=== PATIENT | female | born 1970 | race American Indian/Alaskan Native ===

== ENCOUNTER 2017-08-18 21:29 | Inpatient (IN) | payer MEDICAID, OTHER ==
[2017-08-18 21:31] VITALS: BMI 30.2
--- NOTE | 2017-08-18 21:54 | ED PDOC ---
Arrival/HPI - General Chief Complaint: Altered Mental Status Time Seen by Provider: 08/18/17 21:32 Historian: EMS - History of Present Illness Narrative History of Present Illness (Text): 08/18/17 21:53 Piper Rosas is a 47 year old female, whose past medical history includes hypertension, diabetes, ESRD on hemodialysis, and osteromyelitis, who presents to the Emergency department brought in by EMS for altered mental status. As per EMS, patient's boyfriend called EMS due to patient new onset of altered mental status and confusion tonight. On arrival to ER, patient is confused and disoriented x3. Limited HPI and ROS due to patient's altered mental status. Time/Duration: Other (tonight) Symptom Onset: Gradual Symptom Course: Unchanged Activities at Onset: Light Context: Home Past Medical History - Provider Review Nursing Documentation Reviewed: Yes - Infectious Disease Hx of Infectious Diseases: None - Cardiac Hx Hypertension: Yes - Renal Hx Renal Disorder: Yes Hx Dialysis: Yes Type of Dialysis Access: HD - Endocrine/Metabolic Hx Endocrine Disorders: Yes Hx Diabetes Mellitus Type 2: Yes - Psychiatric Hx Substance Use: No - Surgical History Hx Orthopedic Surgery: Yes - Suicidal Assessment Feels Threatened In Home Enviroment: No Family/Social History - Physician Review Nursing Documentation Reviewed: Yes Family/Social History: Unknown Family HX Smoking Status: Unknown If Ever Smoked Hx Alcohol Use: No Hx Substance Use: No Allergies/Home Meds Allergies/Adverse Reactions: Allergies No Known Allergies Allergy (Unverified 08/12/13 00:40) Home Medications: Home Meds Medication Instructions Recorded Confirmed Crestor 08/12/13 08/12/13 Lisinopril 08/12/13 08/12/13 Metformin 08/12/13 08/12/13 Review of Systems - Review of Systems Systems not reviewed;Unavailable: Altered Mental Status Physical Exam Vital Signs Reviewed: Yes Vital Signs Temp Pulse Resp BP Pulse Ox 08/19/17 01:25 103.1 F H 102 H 17 198/133 H 95 08/18/17 23:11 97 H 193/109 H 08/18/17 22:57 104 H 215/115 H 08/18/17 22:56 104 F H 104 H 215/115 H 08/18/17 22:24 105 H 217/117 H 08/18/17 22:16 104 F H 08/18/17 21:57 103.0 F H 100 H 20 223/122 H 94 L 08/18/17 21:37 104 H 20 201/102 H 96 Temperature: Febrile Blood Pressure: Hypertensive Pulse: Tachycardic Respiratory Rate: Normal Pain Distress: None Mental Status: Positive for: Confused - Systems Exam Head: Present: Atraumatic, Normocephalic Pupils: Present: PERRL Extroacular Muscles: Present: EOMI Conjunctiva: Present: Normal Mouth: Present: Moist Mucous Membranes Neck: Present: Normal Range of Motion Respiratory/Chest: Present: Rhonchi. No: Respiratory Distress, Accessory Muscle Use Cardiovascular: Present: Normal S1, S2, Tachycardic. No: Murmurs Abdomen: Present: Normal Bowel Sounds. No: Tenderness, Distention, Peritoneal Signs Upper Extremity: Present: Normal Inspection, Normal ROM, NORMAL PULSES, Neurovascularly Intact, Capillary Refill < 2s. No: Cyanosis, Edema, Tenderness , Swelling, Erythema, Temperature Abnormalties, Deformity Lower Extremity: Present: Normal Inspection, NORMAL PULSES, Normal ROM, Neurovascularly Intact, Capillary Refill < 2 s. No: Edema, Cyanosis, Tenderness , Swelling, Erythema, Deformity, Temperature Abnormalties Neurological: Present: GCS=15, CN II-XII Intact, Motor Func Grossly Intact, Normal Sensory Function, Normal Cerebellar Funct Skin: Present: Warm, Dry, Normal Color. No: Rashes Psychiatric: Present: Other (Confused, disoriented x3). No: Oriented x 3 Medical Decision Making ED Course and Treatment: 08/18/17 21:53 Impression: 47 year old female brought in by EMS for altered mental status tonight. Plan: -- CT Head w/o contrast -- EKG -- Chest X-ray -- Labs, VBG, blood cultures -- Apresoline -- Tylenol -- Reassess and disposition Prior Visits: Notes and results from previous visits were reviewed. Progress Notes: Reviewed EKG, sinus tachycardia at [address] bpm[address] Non-specific ST/T wave changes. 08/18/17 23:28 Pt's daughter present at bedside. States pt was recently treated at [facility] for pneumonia and has been coughing. 08/18/17 23:34 Code Sepsis called. Reviewed Chest X-ray, positive for pneumonia. 08/19/17 00:05 CT Head shows: Brain: Ventricles are normal in size and configuration. There is no midline shift. There are no intraaxial or extra-axial mass lesions or areas of hemorrhage. There are no abnormal fluid collections. Villalobos-white differentiation is maintained. Ventricles: See above. Bones: Cranial vault is intact. Soft tissues: unremarkable Sinuses: There is no acute sinusitis. There is a retention cyst/polyp in the right maxillary sinus. Orbits: Orbital contents are unremarkable. Ears and mastoids: Middle ears and mastoids are unremarkable IMPRESSION: No acute intracranial abnormality 08/19/17 00:39 Code Sepsis erroneously called and was rescinded. Case discussed with medical technician working second hand, who is aware and agrees with plan. Case discussed with Dr. Law, who is aware and agrees with plan. Accepts pt in to hospitalist service. 08/19/17 01:12 Pt will be admitted to ICU for sepsis, pneumonia, uncontrolled hypertension, and hyperglycemia under the hospitalist service. - Critical Care Critical Care Minutes: 30 minutes - Lab Interpretations Lab Results: 08/18/17 23:00 08/18/17 23:00 Lab Results 08/18/17 23:00: Sodium 133, Chloride 92 L, Potassium 4.5, Carbon Dioxide 29, Anion Gap 17, BUN 42 H, Creatinine 6.4 H, Est GFR ( Amer) 8, Est GFR (Non -Af Amer) 7, Random Glucose 759 H*, Calcium 9.5, Phosphorus 4.5, Magnesium 2.1, Total Bilirubin 1.3, AST 57 H, ALT 73 H, Alkaline Phosphatase 148 H, Total Protein 7.4, Albumin 4.2, Globulin 3.2, Albumin/Globulin Ratio 1.3 08/18/17 23:00: pO2 54, VBG pH 7.50 H, VBG pCO2 39.0 L, VBG HCO3 30.4 H, VBG Total CO2 31.6 H, VBG O2 Sat (Calc) 92.4 H, VBG Base Excess 6.7 H, VBG Potassium 4.3, Sodium 136.0, Chloride 93.0 L, Glucose > 750 H*, Lactate 2.1, FiO2 21.0, Venous Blood Potassium 4.3 08/18/17 23:00: PT 12.9 H, INR 1.18 H, APTT 33.6 08/18/17 23:00: WBC 6.0, RBC 3.52, Hgb 10.9 L, Hct 34.2 L, MCV 97.2, MCH 31.0, MCHC 31.9, RDW 16.9 H, Plt Count 148, MPV 12.0 H, Gran % 82.0 H, Lymph % (Auto) 12.0 L, Zavala % (Auto) 5.8, Eos % (Auto) 0.0 L, Baso % (Auto) 0.2, Gran # 4.91, Lymph # 0.7 L, Zavala # 0.4, Eos # 0.0, Baso # 0.01 I have reviewed the lab results: Yes - RAD Interpretation Radiology Orders: 08/18/17 21:55 HEAD W/O CONTRAST [CT] Stat 08/18/17 21:56 CHEST PORTABLE [RAD] Stat - EKG Interpretation Interpreted by ED Physician: Yes Type: 12 lead EKG - Medication Orders Current Medication Orders: Insulin Human Regular 100 (units/ Sodium Chloride) 100 mls @ 10 mls/hr IV .Q10H PRN; Protocol; 10 UNITS/HR PRN Reason: TITRATE PER MD ORDER Last Admin: 08/19/17 00:35 Dose: 10 mls/hr eMAR Start Stop Document 08/19/17 00:35 [facility] (Rec: 08/19/17 00:35 [facility] [id number]) Intravenous Solution Start Date 08/19/17 Start Time 00:35 MAR Blood Glucose Document 08/19/17 00:35 [facility] (Rec: 08/19/17 00:35 [facility] [id number]) Blood Glucose Finger Stick Blood Glucose (70-120) 500 Sodium Chloride (Sodium Chloride 0.9%) 1,000 mls @ 100 mls/hr IV .Q10H [place] Last Admin: 08/19/17 00:34 Dose: 100 mls/hr eMAR Start Stop Document 08/19/17 00:34 [facility] (Rec: 08/19/17 00:34 [facility] [id number]) Intravenous Solution Start Date 08/19/17 Start Time 00:34 End Date 08/19/17 Labetalol HCl 500 mg/ Sodium (Chloride) 500 mls @ 60 mls/hr IV .Q8H20M PRN; Protocol; 1 MG/MIN PRN Reason: TITRATE PER MD ORDER Discontinued Medications Acetaminophen (Tylenol 650 Mg Supp) 650 mg RC STAT STA Stop: 08/18/17 22:24 Last Admin: 08/18/17 22:56 Dose: 650 mg MAR Pain/Vitals Document 08/18/17 22:56 SF (Rec: 08/18/17 22:56 [id number]) Vitals Temperature (97.6 F-99.6 F) 104 F Temperature Source Rectal Hydralazine HCl (Apresoline) 10 mg IVP ONCE ONE Stop: 08/18/17 21:58 Last Admin: 08/18/17 22:24 Dose: 10 mg IVP Administration Document 08/18/17 22:24 SF (Rec: 08/18/17 22:24 [facility]-[id number]) Charges for Administration # of IVP Administrations 1 MAR Pulse and Blood Pressure Document 08/18/17 22:24 SF (Rec: 08/18/17 22:24 [facility]-[id number]) Pulse Pulse Rate (60-90 beats/min) 105 Blood Pressure Blood Pressure (100/60-150/90 mm Hg) 217/117 Cefepime HCl (Maxipime 2gm) 2 gm in 100 mls @ 100 mls/hr IVPB STAT STA PRN Reason: Protocol Stop: 08/19/17 00:39 Last Admin: 08/19/17 00:39 Dose: 100 mls/hr eMAR Start Stop Document 08/19/17 00:39 ADRIANNA (Rec: 08/19/17 00:40 [facility] [id number]) Intravenous Solution Start Date 08/19/17 Start Time 00:39 End Date 08/19/17 End time 01:39 Total Infusion Time 60 Vancomycin HCl (Vancomycin 1gm) 1 gm in 250 mls @ 167 mls/hr IVPB STAT STA PRN Reason: Protocol Stop: 08/19/17 01:09 Insulin Human Regular (Humulin R) 10 units IVP STAT STA Stop: 08/18/17 23:38 Last Admin: 08/19/17 00:35 Dose: 10 units MAR Blood Glucose Document 08/19/17 00:35 ADRIANNA (Rec: 08/19/17 00:35 [facility] [id number]) Blood Glucose Finger Stick Blood Glucose (70-120) 500 IVP Administration Document 08/19/17 00:35 [facility] (Rec: 08/19/17 00:35 [facility]- [id number]) Charges for Administration # of IVP Administrations 1 Labetalol HCl (Trandate) 20 mg IV STAT STA Stop: 08/18/17 22:49 Last Admin: 08/18/17 22:56 Dose: 20 mg eMAR Start Stop Document 08/18/17 22:56 SF (Rec: 08/18/17 22:57 [id number]) Intravenous Solution Start Date 08/18/17 Start Time 22:57 MAR Pulse and Blood Pressure Document 08/18/17 22:56 SF (Rec: 08/18/17 22:57 [id number]) Pulse Pulse Rate (60-90 beats/min) 104 Blood Pressure Blood Pressure (100/60-150/90 mm Hg) 215/115 - Scribe Statement The provider has reviewed the documentation as recorded by the Jdibjessie Montanez Provider Scribe Attestation: All medical record entries made by the Scribe were at my direction and personally dictated by me. I have reviewed the chart and agree that the record accurately reflects my personal performance of the history, physical exam, medical decision making, and the department course for this patient. I have also personally directed, reviewed, and agree with the discharge instructions and disposition. Disposition/Present on Arrival - Present on Arrival Any Indicators Present on Arrival: No History of DVT/PE: No History of Uncontrolled Diabetes: Yes Urinary Catheter: No History of Decub. Ulcer: No History Surgical Site Infection Following: None - Disposition Have Diagnosis and Disposition been Completed?: Yes Diagnosis: Sepsis, Pneumonia, ESRD (end stage renal disease), Uncontrolled hypertension, Hyperglycemia due to type 1 diabetes mellitus, Altered mental status Disposition: HOSPITALIZED Disposition Time: 00:30 Patient Plan: ICU Patient Problems: Current Active Problems Problem Status Onset Altered mental status Acute ESRD (end stage renal disease) Acute Hyperglycemia due to type 1 diabetes mellitus Acute Pneumonia Acute Sepsis Acute Uncontrolled hypertension Acute Condition: GUARDED
[2017-08-18] MEDS ORDERED: Labetalol 5 mg/ml Inj 20ML IV STA (22:48)
[2017-08-18 23:20] LABS: BASO # 0.01 K/mm3 (0.0-2.0); BASO % 0.2 % (0.0-3.0); GRAN # 4.91 (1.4-6.5); HEMATOCRIT 34.2 % (36.0-48.0); LYMPH # 0.7 (1.2-3.4); MEAN CELL VOLUME 97.2 fl (80.0-105.0); MEAN CORPUSCULAR HGB CONC 31.9 g/dl (31.0-37.0); MONO # 0.4 (0.1-0.6); MONO % 5.8 % (1.0-6.0); RED CELL DISTRIBUTION WIDTH 16.9 % (11.5-14.5)
[2017-08-18 23:21] LABS: VENOUS BLOOD GAS BASE EXCESS 6.7 mmol/L (0.0-2.0)
[2017-08-18] MEDS ORDERED: Insulin Regular 1 UNITS/0.01 ML ML IVP STA (23:37)
[2017-08-18] MEDS ORDERED: Cefepime IV 2 gm in NS 2 GM/100 ML BAG IVPB STA (23:40)
[2017-08-18] MEDS ORDERED: Vancomycin 1gm in NS 250ml 1 GM/250 ML BAG IVPB STA (23:40)
[2017-08-18 23:43] LABS: INR 1.18 (0.93-1.08); PARTIAL THROMBOPLASTIN TIME 33.6 Seconds (25.1-36.5)
[2017-08-18 23:45] LABS: ALB/GLOB RATIO 1.3 (1.1-1.8); BILIRUBIN,TOTAL 1.3 mg/dL (0.2-1.3); CALCIUM 9.5 mg/dL (8.4-10.5); MAGNESIUM 2.1 mg/dL (1.7-2.2); PHOSPHOROUS 4.5 mg/dL (2.5-4.5); TOTAL PROTEIN 7.4 g/dL (5.8-8.3)
[2017-08-18 23:48] LABS: POTASSIUM 4.5 mmol/L (3.6-5.0)
--- NOTE | 2017-08-18 23:58 | CT ---
EXAM: CT Head Without Intravenous Contrast EXAM DATE/TIME: 08/18/2017 9:55 PM CLINICAL HISTORY: 47 years old, female; Signs and symptoms; Altered mental status/memory loss; Other: AMS TECHNIQUE: Axial computed tomography images of the head/brain without intravenous contrast. All CT scans at this facility use one or more dose reduction techniques, viz.: automated exposure control; ma/kV adjustment per patient size (including targeted exams where dose is matched to indication; i.e. head); or iterative reconstruction technique. COMPARISON: There are no prior studies for comparison. FINDINGS: Brain: Ventricles are normal in size and configuration. There is no midline shift. There are no intra-axial or extra-axial mass lesions or areas of hemorrhage. There are no abnormal fluid collections. Villalobos-white differentiation is maintained. Ventricles: See above. Bones: Cranial vault is intact. Soft tissues: unremarkable Sinuses: There is no acute sinusitis. There is a retention cyst/polyp in the right maxillary sinus. Orbits: Orbital contents are unremarkable. Ears and mastoids: Middle ears and mastoids are unremarkable IMPRESSION: No acute intracranial abnormality
[2017-08-19] MEDS: Sodium Chloride 0.9% 1,000 ML IV SCH ×3 (00:34→20:34)
[2017-08-19] MEDS: Insulin Regular 100 UNITS in Sodium Chloride 0.9% 99 ML IV PRN ×2 (00:35→01:33)
[2017-08-19] MEDS ORDERED: Labetalol 500 MG in Sodium Chloride 0.9% 400 ML IV PRN (01:05)
[2017-08-19 01:42] LABS: URINE BILIRUBIN NEGATIVE (NEGATIVE); URINE BLOOD MODERATE (NEGATIVE); URINE GLUCOSE (UA) >=1000 mg/dL (NEGATIVE); URINE KETONE NEGATIVE (NEGATIVE); URINE LEUKOCYTE ESTERASE NEGATIVE Leu/uL (NEGATIVE); URINE PROTEIN >=300 mg/dL (<30 mg/dL); URINE UROBILINOGEN 0.2 E.U./dL (<1 E.U./dL)
[2017-08-19 01:44] LABS: URINE APPEARANCE CLEAR (CLEAR); URINE COLOR YELLOW (YELLOW)
--- NOTE | 2017-08-19 03:22 | CP.PCM.HP ---
<Cheng Adames - Last Filed: 08/19/17 06:23> History of Present Illness - History of Present Illness History of Present Illness: Maeluciana Rosangela LOMAS PGY1 - History and Physical and ICU Consult Note Patient is a 47 yo F with PMH of IDDM type 2, ESRD on HD (T/R/S), HTN, osteomyelitis, HLD who was brought to the ER by EMS, called by her boyfriend for altered mental status and lethargy. Patient was lethargic, further history obtained from her daughter who was at bedside. Patient had reportedly recently ( about 1 week ago) been admitted to [facility] where she was being treated for pneumonia, and was ultimately discharged with a PO course of antibiotics. According to the daughter, patient was not taking anything for the pneumonia after leaving the hospital, and continued to have a cough productive of green sputum, as well as fever and malaise. She was also not taking any of her other medications for the past 2-3 days, as she has been staying at her friend's home where she doesn't have access to them. Daughter does think she went to dialysis as scheduled on Saturday, but cannot confirm with certainty. Further ROS and HPI limited by patient's mental status. PMH: IDDM type 2, ESRD on HD (T/R/S), HTN, osteomyelitis, HLD, recent PNA PSH: "neck surgery" for osteomyelitis; 2-3rd digit amputations right foot; Right UE AVF for hemodialysis Home meds: Daughter is unsure; patient gets medications delivered from [facility] Soc: Daughter denies tobacco, alcohol, or illicits FHx: Daughter is unsure All: NKDA ROS: Unobtainable, due to altered mental status Present on Admission - Present on Admission Any Indicators Present on Admission: Yes History of DVT/PE: No History of Uncontrolled Diabetes: Yes Urinary Catheter: No Decubitus Ulcer Present: No Past Patient History - Infectious Disease Hx of Infectious Diseases: None - Past Social History Smoking Status: Unknown If Ever Smoked - CARDIAC Hx Hypertension: Yes - RENAL Hx Chronic Kidney Disease: Yes Hx Dialysis: Yes Type of Dialysis Access: HD - ENDOCRINE/METABOLIC Hx Endocrine Disorders: Yes Hx Diabetes Mellitus Type 2: Yes - PSYCHIATRIC Hx Substance Use: No - SURGICAL HISTORY Hx Orthopedic Surgery: Yes Meds Allergies/Adverse Reactions: Allergies Allergy/AdvReac Type Severity Reaction Status Date / Time No Known Allergies Allergy Unverified 08/12/13 00:40 Physical Exam - Constitutional Appears: Toxic, In Acute Distress, Confused, Chronically Ill - Head Exam Head Exam: ATRAUMATIC, NORMOCEPHALIC - Eye Exam Eye Exam: EOMI. absent: Scleral icterus Additional comments: Both eyes proptotic, with conjunctival hyperemia - ENT Exam ENT Exam: Mucous Membranes Dry - Neck Exam Neck exam: Positive for: Normal Inspection - Respiratory Exam Respiratory Exam: Accessory Muscle Use, Rales, Rhonchi - Cardiovascular Exam Cardiovascular Exam: Tachycardia, REGULAR RHYTHM - GI/Abdominal Exam GI & Abdominal Exam: Normal Bowel Sounds, Soft. absent: Firm, Guarding, Rigid, Tenderness - Extremities Exam Extremities exam: Negative for: calf tenderness, pedal edema Additional comments: RLE with multiple distal amputations - Neurological Exam Neurological exam: Altered - Skin Skin Exam: Dry, Intact Results - Vital Signs Recent Vital Signs: Last Vital Signs Temp 103.1 F H 08/19/17 01:25 Pulse 100 H 08/19/17 02:15 Resp 17 08/19/17 01:25 BP 185/99 H 08/19/17 02:15 Pulse Ox 95 08/19/17 01:25 - Labs Result Diagrams: 08/18/17 23:00 08/18/17 23:00 Assessment & Plan - Assessment and Plan (Free Text) Assessment: 47 yo F with PMH of IDDM type 2, ESRD on HD (T/R/S), HTN, osteomyelitis, HLD who was brought to the ER by EMS for altered mental status and lethargy. Active treatment for altered mental status 2/2 hypertensive emergency vs sepsis 2/2 nosocomial pneumonia vs hyperosmolar hyperglycemic state Neuro: - Patient is severely altered, GCS 10. - AMS 2/2 hypertensive emergency vs sepsis 2/2 nosocomial pneumonia vs hyperosmolar hyperglycemic state - Head CT negative for any acute intracranial abnormality - Maintain normothermia Cardio: - Patient has a history of HTN; daughter at bedside unsure of what she normally takes at home - Currently with hypertensive urgency/emergency - Continue Labetalol drip as ordered in the ER - Titrate to decrease BP by 25%, then switch to PO meds Pulm: - Patient with recent PNA, teated with IV Abx, did not complete course - Lobar consolidation seen on CXR representing likely PNA, consistent with rhonchi on exam - Continue IV Abx as below - PRN O2 by NC to maintain SaO2 >90% GI: - Maintain NPO until acute hyperglycemic state resolves - IV Protonix for Ppx Renal: - Patient has history of ESRD on HD (T/R/S), according to daughter, did go to dialysis on Saturday, but she is unable to confirm with certainty - cr significantly elevated; last cr on record from 2013 - Recheck cr with AM labs after resuscitation and stabilization - Strict I&O - Monitor and replete lytes as needed; will likely need potassium repletion, monitor closely and administer carefully in patient with ESRD - Consult Nephro for probable dialysis requirement during admission, appreciate recs Endo: - Patient has history of IDDM type 2; presents with HHS (AG 12) - Insulin drip started in ER - Moderate IVF hydration until BP improves, to avoid worsening HTN - Switch to SQ insulin after BG drops below 250 Hem/Onc: - H/H stable, no apparent active bleeding ID: - Patient febrile to 104, without leukocytosis - History of recent PNA treated with IV Abx, did not complete course of oral Abx - Current with PNA seen on CXR and apparent on exam - Continue renally dosed Vancomycin and Cefepime, as started in ER - Consult ID, appreciate recs Ppx: GI - Protonix DVT - SCDs Patient discussed and reviewed with attending <Jeb Law - Last Filed: 08/20/17 23:17> Results - Vital Signs Recent Vital Signs: Last Vital Signs Temp 97.3 F L 08/20/17 18:00 Pulse 83 08/20/17 22:00 Resp 19 08/20/17 18:00 BP 136/76 08/20/17 20:43 Pulse Ox 99 08/20/17 06:00 - Labs Result Diagrams: 08/18/17 23:00 08/19/17 09:00 Labs: Laboratory Results - last 24 hr 08/19/17 08/19/17 08/20/17 09:00 22:00 07:24 POC Glucose (mg/dL) 102 Vancomycin Trough Urine Opiates Screen Negative Urine Methadone Screen Negative Ur Barbiturates Screen No result Ur Phencyclidine Scrn Negative Ur Amphetamines Screen Negative U Benzodiazepines Scrn Negative U Oth Cocaine Metabols Negative U Cannabinoids Screen Negative HIV 1&2 Ag/Ab, 4th Gen Nonreactive 08/20/17 08/20/17 08/20/17 11:29 16:12 19:29 POC Glucose (mg/dL) 227 H 335 H 253 H Vancomycin Trough Urine Opiates Screen Urine Methadone Screen Ur Barbiturates Screen Ur Phencyclidine Scrn Ur Amphetamines Screen U Benzodiazepines Scrn U Oth Cocaine Metabols U Cannabinoids Screen HIV 1&2 Ag/Ab, 4th Gen 08/20/17 08/20/17 21:20 21:55 POC Glucose (mg/dL) 217 H Vancomycin Trough 8.1 Urine Opiates Screen Urine Methadone Screen Ur Barbiturates Screen Ur Phencyclidine Scrn Ur Amphetamines Screen U Benzodiazepines Scrn U Oth Cocaine Metabols U Cannabinoids Screen HIV 1&2 Ag/Ab, 4th Gen Attending/Attestation - Attestation I have personally seen and examined this patient.: Yes I have fully participated in the care of the patient.: Yes I have reviewed all pertinent clinical information: Yes Notes (Text): 08/20/17 23:16 Patient was seen when she was in the ER. Agree with history, physical examination, assessment and plan.
[2017-08-19] MEDS ORDERED: Insulin Detemir 100 units/ml Vial (Levemir) SC ONE (03:58)
[2017-08-19 04:12] LABS: VENOUS BLOOD GAS BASE EXCESS 1.3 mmol/L (0.0-2.0); VENOUS BLOOD PH 7.42 (7.32-7.43)
[2017-08-19] MEDS ORDERED: Sodium Chloride 0.9% 1,000 ML IV STA (04:19)
[2017-08-19 04:31] LABS: ALB/GLOB RATIO 1.2 (1.1-1.8); BILIRUBIN,TOTAL 0.9 mg/dL (0.2-1.3); CALCIUM 9.9 mg/dL (8.4-10.5); POTASSIUM 3.2 mmol/L (3.6-5.0); TOTAL PROTEIN 7.2 g/dL (5.8-8.3)
[2017-08-19 07:18] LABS: PHOSPHOROUS 3.5 mg/dL (2.5-4.5)
--- NOTE | 2017-08-19 08:27 | RAD ---
HISTORY: Sepsis Patient COMPARISON: No prior. FINDINGS: LUNGS: Silhouetting of the left hemidiaphragm is suggestive of left lower lobe airspace disease, borderline at the right base. PLEURA: No significant pleural effusion identified, no pneumothorax apparent. CARDIOVASCULAR: Cardiomegaly is noted with active pulmonary venous congestion appreciable. Clinically correlate further. OSSEOUS STRUCTURES: No significant abnormalities. VISUALIZED UPPER ABDOMEN: Normal. OTHER FINDINGS: None. IMPRESSION: Findings most compatible with CHF. Left basilar airspace disease is suspected, borderline at the right. Further clinical correlation advised.
[2017-08-19 08:41] LABS: ALCOHOL SERUM < 10 mg/dL (0-10)
--- NOTE | 2017-08-19 09:03 | US ---
HISTORY: Transaminemia COMPARISON: None. TECHNIQUE: Sonographic evaluation of the abdomen. FINDINGS: LIVER: Measures 19.7 cm. Slightly heterogeneous with mild increase echogenicity of the liver parenchyma. No mass. No intrahepatic bile duct dilatation. GALLBLADDER: No evidence of gallstones. Diffuse gallbladder wall thickening is noted. Questionable trace pericholecystic fluid. COMMON BILE DUCT: Measures 4.6 mm. No stones. No dilatation. PANCREAS: Unremarkable as visualized. No mass. No ductal dilatation. RIGHT KIDNEY: Measures 9.7 x 3.6 x 5.8cm. No evidence of hydronephrosis. The right kidney is echogenic. LEFT KIDNEY: Measures 10.3 x 4 x 6.3cm. No evidence of left hydronephrosis. The left kidney is also echogenic. SPLEEN: Normal in size and contour. No mass. AORTA: No aneurysmal dilatation. IVC: Unremarkable. OTHER FINDINGS: There is a small amount of right pleural effusion noted. There is also suspicious for trace ascites. IMPRESSION: Echogenic kidneys suggestive of medical renal disease. Suspicious for small ascites and right pleural effusion. Diffuse wall thickening of the gallbladder which could be due to soft tissue edema. No evidence of cholelithiasis or sonographic Monroe's sign. Mildly enlarged slightly echogenic liver likely due to mild steatosis.
[2017-08-19 09:10] LABS: THYROID STIMULATING HORMONE 1.19 mIU/mL (0.46-4.68)
[2017-08-19 09:14] LABS: VENOUS BLOOD GAS BASE EXCESS 4.4 mmol/L (0.0-2.0); VENOUS BLOOD PH 7.38 (7.32-7.43)
[2017-08-19 09:45] LABS: ALB/GLOB RATIO 1.2 (1.1-1.8); BILIRUBIN,DIRECT 0.9 mg/dL (0.0-0.4); BILIRUBIN,TOTAL 0.9 mg/dL (0.2-1.3); CALCIUM 9.7 mg/dL (8.4-10.5); POTASSIUM 3.6 mmol/L (3.6-5.0); TOTAL PROTEIN 6.9 g/dL (5.8-8.3)
[2017-08-19] MEDS ORDERED: Vancomycin 1gm in NS 250ml 1 GM/250 ML BAG IVPB SCH (11:00)
[2017-08-19] MEDS ORDERED: Insulin Reg-MEDIUM-Coverage SC SCH (11:30)
[2017-08-19] MEDS ORDERED: Insulin Lispro (humaLOG) MEDIUM Coverage SC SCH (11:30)
--- NOTE | 2017-08-19 12:11 | CP.PCM.PN ---
Subjective - Date & Time of Evaluation Date of Evaluation: 08/19/17 Time of Evaluation: 07:45 - Subjective Subjective: Patient seen and examined, reports no major complaints. Currently off Labetolol drip, and insulin drip. Afebrile, HD stable, comfortable. Objective - Vital Signs/Intake and Output Vital Signs (last 24 hours): Temp Pulse Resp BP Pulse Ox 100.6 F H 79 20 145/76 95 08/19/17 04:00 08/19/17 10:45 08/19/17 03:34 08/19/17 10:45 08/19/17 02:55 Intake and Output: 08/19/17 08/19/17 06:59 18:59 Intake Total 967.0 1.5 Balance 967.0 1.5 - Medications Medications: Current Medications Heparin Sodium (Porcine) (Heparin) 5,000 units SC Q12 [facility] PRN Reason: Protocol Hydralazine HCl (Apresoline) 25 mg PO Q8H [facility] Last Admin: 08/19/17 10:45 Dose: 25 mg Sodium Chloride (Sodium Chloride 0.9%) 1,000 mls @ 100 mls/hr IV .Q10H [facility] Last Admin: 08/19/17 10:46 Dose: 100 mls/hr Acetaminophen (Ofirmev) 1,000 mg in 100 mls @ 400 mls/hr IVPB Q6H PRN PRN Reason: Temperature Stop: 08/21/17 03:37 Last Admin: 08/19/17 03:44 Dose: 400 mls/hr Vancomycin HCl (Vancomycin 1gm) 1 gm in 250 mls @ 167 mls/hr IVPB Q12H [facility] PRN Reason: Protocol Meropenem 1 gm/ Dextrose 100 mls @ 100 mls/hr IVPB Q8 [facility] PRN Reason: Protocol Stop: 08/19/17 22:59 Insulin Detemir (Levemir) 15 unit SC HS [facility] Insulin Human Lispro (Humalog Med) 0 units SC ACHS [facility] PRN Reason: Protocol Pantoprazole Sodium (Protonix Inj) 40 mg IVP DAILY [facility] Last Admin: 08/19/17 10:44 Dose: 40 mg - Labs Labs: 08/19/17 09:00 PT 12.9 SECONDS (9.4-12.5) H 08/18/17 23:00 INR 1.18 (0.93-1.08) H 08/18/17 23:00 APTT 33.6 Seconds (25.1-36.5) 08/18/17 23:00 - Constitutional Appears: Well, Non-toxic, No Acute Distress - Head Exam Head Exam: ATRAUMATIC - Eye Exam Eye Exam: EOMI, Normal appearance - ENT Exam ENT Exam: Mucous Membranes Moist - Neck Exam Neck Exam: Full ROM - Respiratory Exam Respiratory Exam: Clear to Ausculation Bilateral, NORMAL BREATHING PATTERN - Cardiovascular Exam Cardiovascular Exam: REGULAR RHYTHM, +S1, +S2 - GI/Abdominal Exam GI & Abdominal Exam: Soft, Normal Bowel Sounds - Extremities Exam Extremities Exam: Full ROM - Neurological Exam Neurological Exam: Alert, Awake Assessment and Plan - Assessment and Plan (Free Text) Assessment: PAtient is 47 yo F with PMH of IDDM type 2, ESRD on HD (T/R/S), HTN, osteomyelitis, HLD, a/w hyperglycemia, and hypertensive urgency - currently afebrile, HD stable, comfortable, with no major complaints - off insulin drip, off Labetolol drip Hyperglycemia/HHS AMS, resolved HTN urgency ESRD on HD CHF Recommend: - supp o2 as needed - follow up ID consult - check procalcitonin, follow up cultures, urine Lg, Strep - HD as per renal - monitor FS, PORTER - Start Levemir at home dose - restart BP meds, goal MAP decrease by no more than 25% in first 24 hours - restart diet - rule out Flu - GI ppx - DVT ppx - FS control - transfer to telemetry, STABLE
--- NOTE | 2017-08-19 15:05 | CP.PCM.CON ---
History of Present Illness - History of Present Illness History of Present Illness: Initial Nephrology Consultation: Assessment: critical Altered mental status, Hyperosmolar non-ketotic hyperglycemic state, HTN emergency, lactic acidosis, Sepsis, Hypokalemia Diabetic chronic Kidney Disease (E11.22) Hypertensive Chronic Kidney Disease (I12.0) End stage renal disease (N18.6) dependence on hemodialysis (Z99.2) (TTS) via AVG Anemia (D64.9), Hyperphosphatemia (E83.39), Secondary Hyperparathyroidism (E21.1 ), HTN (I12.0) Plan: Will plan for HD today as ordered (due to change in outpt HD schedule this week due to Thanksgi on ). Continue with Nephrovite 1 tab/day. Hb okay, defer HAILEY for now last phos level 3.5 okay BP control with meds as ordered. Patient on RAAS lópez as lisinopril at home, can resume at d/c Glycemic control (metformin contraindicated due to ESRD status), Dialysis consistent diet Further work up/management as per primary team Dose meds/antibiotics (if needed) for ESRD status. Avoid fleets enema/magnesium based laxatives. dose Vanco by level, post HD Thanks for allowing me to participate in care of your patient. Will follow patient with you. Please call if any Qs. d/w daughter, ICU and primary team Dr Elton Bryant Office: [phone] Chief Complaint;fever HPI: Pt is a 47 y/o with hx of ESRD on hemodialysis (TTS) via Rt AVG, last dialysis sat, chronic anemia, hyperphosphatemia, secondary hyperparathyroidism, Diabetes Mellitus, hypertension presented with complaints of fever and confusion , change in mental status, found to have sepsis, hyperosmolar state, HTN emergency and admission to ICU as required insulin drip and IV antihypertensives. confusion better now. Denies chest pain, palpitation, shortness of breath, leg swelling. has cough and sore throat recent admission [place] [facility] [place] and d/c home approx 7-10 days ago. ROS: daughter bedside Constitutional Symptoms: c/o fever. No chills. No Recent Weight Changes Eyes: denies change in vision, denies watery eyes, denies double vision Ears/Nose/Mouth/Throat: Denies Abnormal Taste. No Bad breath or Bad Taste. had sore throat Cardiovascular: No chest pain. There is no shortness of breath. No palpitations. Pulmonary: No shortness of breath but had cough. Gastrointestinal: denies abdominal pain No nausea. No vomiting. Denies change in bowel habits. Denies Bleeding Genitourinary: makes small urine. No associated pain or blood. Neurological: Denies headaches. No dizziness. Denies loss of balance. Denies weakness, denies tingling/numbness Dermatological: No Rash or Bruising or ulcers. Psychiatric: Denies Anxiety. No depression. Denies hallucinations. Rheumatological: No joint pain. Denies Joint swelling Endocrine: Denies over tiredness. Denies Fatigue and denies Heat/Cold Intolerance. All other negative. Physical Examination: General Appearance: Comfortable, in no acute respiratory distress, co-operative . Vitals reviewed and noted as below Head; Atraumatic, normocephalic ENT: no ulcers no thrush. Tongue is midline. Oropharynx: no rash but ? ulcer on Rt tonsillar area. EYES: Pupils are equal, round and reactive to light accommodation. Eye muscles and extraocular movement intact. Sclera is anicteric. Neck; supple no lymphadenopathy, no thyromegaly or bruit Lungs: Normal respiratory rate/effort. Breath sounds bilateral equal and b/l basal crackles + Heart: Normal rate. s1s2 normal. No rub or gallop. Extremities: no edema. No varicose veins Neurological: Patient is alert, awake and oriented to person, place and time. No focal deficit. Strength bilateral appropriate and equal. some confusion note Skin: Warm and dry. Normal turgor. No rash. Palpitation: Normal elasticity for age Abdomen: Abdomen is soft. Bowel sounds +. There is no abdominal tenderness, no guarding/rigidity or organomegaly Psych: normal insight and normal affect/mood MSK: no joint tenderness or swelling. Digits and nails normal, no deformity : kidney or bladder not palpable Access: Rt AVG with thrill and bruit Labs/imaging reviewed. Past medical history, past surgical history, family history, social history, allergy reviewed and noted as below Family Hx: no hx of CKD. Non contributory Past Patient History - Infectious Disease Hx of Infectious Diseases: None - Past Social History Smoking Status: Unknown If Ever Smoked - CARDIAC Hx Hypertension: Yes - RENAL Hx Chronic Kidney Disease: Yes Hx Dialysis: Yes Type of Dialysis Access: HD - ENDOCRINE/METABOLIC Hx Endocrine Disorders: Yes Hx Diabetes Mellitus Type 2: Yes - MUSCULOSKELETAL/RHEUMATOLOGICAL Hx Falls: No - PSYCHIATRIC Hx Substance Use: No - SURGICAL HISTORY Hx Orthopedic Surgery: Yes Meds Allergies/Adverse Reactions: Allergies Allergy/AdvReac Type Severity Reaction Status Date / Time No Known Allergies Allergy Unverified 08/12/13 00:40 - Medications Medications: Current Medications Glipizide (Glucotrol) 5 mg PO ACBD [facility] Heparin Sodium (Porcine) (Heparin) 5,000 units SC Q12 [facility] PRN Reason: Protocol Hydralazine HCl (Apresoline) 25 mg PO Q8H [facility] Last Admin: 08/19/17 10:45 Dose: 25 mg Sodium Chloride (Sodium Chloride 0.9%) 1,000 mls @ 100 mls/hr IV .Q10H [facility] Last Admin: 08/19/17 10:46 Dose: 100 mls/hr Acetaminophen (Ofirmev) 1,000 mg in 100 mls @ 400 mls/hr IVPB Q6H PRN PRN Reason: Temperature Stop: 08/21/17 03:37 Last Admin: 08/19/17 03:44 Dose: 400 mls/hr Vancomycin HCl (Vancomycin 1gm) 1 gm in 250 mls @ 167 mls/hr IVPB Q12H [facility] PRN Reason: Protocol Meropenem 1 gm/ Dextrose 100 mls @ 100 mls/hr IVPB Q8 [facility] PRN Reason: Protocol Stop: 08/19/17 22:59 Insulin Detemir (Levemir) 8 unit SC HS BR[facility] Insulin Human Regular (Humulin R Low) 0 units SC ACHS [facility] PRN Reason: Protocol Pantoprazole Sodium (Protonix Inj) 40 mg IVP DAILY [facility] Last Admin: 08/19/17 10:44 Dose: 40 mg Results - Vital Signs Recent Vital Signs: Last Vital Signs Temp 98.3 F 08/19/17 09:30 Pulse 79 08/19/17 10:45 Resp 21 08/19/17 08:00 BP 145/76 08/19/17 10:45 Pulse Ox 100 08/19/17 08:00 - Labs Result Diagrams: 08/18/17 23:00 08/19/17 09:00 Labs: Laboratory Results - last 24 hr 08/19/17 08/19/17 08/19/17 01:21 02:23 03:11 pO2 VBG pH VBG pCO2 VBG HCO3 VBG Total CO2 VBG O2 Sat (Calc) VBG Base Excess VBG Potassium Sodium Chloride Glucose Lactate FiO2 Potassium Carbon Dioxide Anion Gap BUN Creatinine Est GFR ( Amer) Est GFR (Non-Af Amer) POC Glucose (mg/dL) > 500 H* 434 H* 227 H Random Glucose Calcium Phosphorus Magnesium Total Bilirubin Direct Bilirubin AST ALT Alkaline Phosphatase Ammonia Total Protein Albumin Globulin Albumin/Globulin Ratio TSH 3rd Generation Venous Blood Potassium Salicylates Acetaminophen Alcohol, Quantitative 08/19/17 08/19/17 08/19/17 03:50 03:50 03:50 pO2 81 H VBG pH 7.42 VBG pCO2 40.0 VBG HCO3 25.9 VBG Total CO2 27.1 VBG O2 Sat (Calc) 96.8 H VBG Base Excess 1.3 VBG Potassium 3.2 L Sodium 141.0 140 Chloride 99.0 97 L Glucose 361 H Lactate 6.6 H* FiO2 21.0 Potassium 3.2 L Carbon Dioxide 25 Anion Gap 20 BUN 43 H Creatinine 7.4 H* Est GFR ( Amer) 7 Est GFR (Non-Af Amer) 6 POC Glucose (mg/dL) Random Glucose 343 H* D Calcium 9.9 Phosphorus 3.5 Magnesium 2.0 Total Bilirubin 0.9 Direct Bilirubin AST 57 H ALT 68 H Alkaline Phosphatase 122 Ammonia Total Protein 7.2 Albumin 4.0 Globulin 3.2 Albumin/Globulin Ratio 1.2 TSH 3rd Generation Venous Blood Potassium 3.2 L Salicylates Acetaminophen Alcohol, Quantitative 08/19/17 08/19/17 08/19/17 04:13 05:00 05:03 pO2 VBG pH VBG pCO2 VBG HCO3 VBG Total CO2 VBG O2 Sat (Calc) VBG Base Excess VBG Potassium Sodium Chloride Glucose Lactate FiO2 Potassium Carbon Dioxide Anion Gap BUN Creatinine Est GFR ( Amer) Est GFR (Non-Af Amer) POC Glucose (mg/dL) 311 H 236 H Random Glucose Calcium Phosphorus Magnesium Total Bilirubin Direct Bilirubin AST ALT Alkaline Phosphatase Ammonia Total Protein Albumin Globulin Albumin/Globulin Ratio TSH 3rd Generation 1.19 Venous Blood Potassium Salicylates Acetaminophen Alcohol, Quantitative < 10 08/19/17 08/19/17 08/19/17 06:10 07:08 07:24 pO2 VBG pH VBG pCO2 VBG HCO3 VBG Total CO2 VBG O2 Sat (Calc) VBG Base Excess VBG Potassium Sodium Chloride Glucose Lactate FiO2 Potassium Carbon Dioxide Anion Gap BUN Creatinine Est GFR ( Amer) Est GFR (Non-Af Amer) POC Glucose (mg/dL) 120 H 92 83 Random Glucose Calcium Phosphorus Magnesium Total Bilirubin Direct Bilirubin AST ALT Alkaline Phosphatase Ammonia Total Protein Albumin Globulin Albumin/Globulin Ratio TSH 3rd Generation Venous Blood Potassium Salicylates Acetaminophen Alcohol, Quantitative 08/19/17 08/19/17 08/19/17 09:00 09:00 09:00 pO2 33 VBG pH 7.38 VBG pCO2 52.0 VBG HCO3 30.8 H VBG Total CO2 32.4 H VBG O2 Sat (Calc) 65.6 H VBG Base Excess 4.4 H VBG Potassium 3.5 L Sodium 145 143.0 Chloride 102 103.0 Glucose 61 L Lactate 3.0 H FiO2 21.0 Potassium 3.6 Carbon Dioxide 29 Anion Gap 18 BUN 45 H Creatinine 7.1 H Est GFR ( Amer) 7 Est GFR (Non-Af Amer) 6 POC Glucose (mg/dL) Random Glucose 63 L Calcium 9.7 Phosphorus Magnesium Total Bilirubin 0.9 Direct Bilirubin 0.9 H AST 44 H D ALT 62 H Alkaline Phosphatase 116 Ammonia Total Protein 6.9 Albumin 3.8 Globulin 3.1 Albumin/Globulin Ratio 1.2 TSH 3rd Generation Venous Blood Potassium 3.5 L Salicylates < 1 L Acetaminophen < 10.0 L Alcohol, Quantitative 08/19/17 09:00 pO2 VBG pH VBG pCO2 VBG HCO3 VBG Total CO2 VBG O2 Sat (Calc) VBG Base Excess VBG Potassium Sodium Chloride Glucose Lactate FiO2 Potassium Carbon Dioxide Anion Gap BUN Creatinine Est GFR ( Amer) Est GFR (Non-Af Amer) POC Glucose (mg/dL) Random Glucose Calcium Phosphorus Magnesium Total Bilirubin Direct Bilirubin AST ALT Alkaline Phosphatase Ammonia < 9 L Total Protein Albumin Globulin Albumin/Globulin Ratio TSH 3rd Generation Venous Blood Potassium Salicylates Acetaminophen Alcohol, Quantitative
--- NOTE | 2017-08-19 16:27 | CP.PCM.CON ---
<Leigha Navarro - Last Filed: 08/19/17 16:24> History of Present Illness - History of Present Illness History of Present Illness: PGY-2 neurology consult note for Dr. Tovar's service 47 yo Female with PMH of IDDM type 2, ESRD on HD (TTS), HTN, osteomyelitis, HLD who was brought to the ER by EMS for altered mental status and lethargy. On admission patient was lethargic. Patient does not recall what occurred last night history taken from H&P and ED note. Patient had reportedly recently ( about 1 week ago) been [place] [facility] was being [place] for pneumonia, and was ultimately discharged with a PO course of antibiotics. Patient was found at her friends home altered and confused. Patient states that she is not always compliant with her medications. She states that she continues to have a cough productive of green sputum and is currently not taking anything. She states that she has not been taking her HTn and insulin for the last few days. She is scheduled for dialysis on Saturday, and Saturday, she states that she did go on Saturday. She denies any headaches, dizziness, focal weakness. She states that she had a neck surgery for osteomylitis within the last year. PMH: IDDM type 2, ESRD on HD (T,t,s), HTN, osteomyelitis, HLD, recent PNA PSH: "neck surgery" for osteomyelitis; 2-3rd digit amputations right foot; Right UE AVF for hemodialysis Home meds: metformin, lisinpril, bacid acidophilusm crestor Soc: denies tobacco, alcohol, or illicits drug use FHx: unknown All: NKDA Review of Systems - Review of Systems All systems: reviewed and no additional remarkable complaints except (as stated in HPI) Past Patient History - Infectious Disease Hx of Infectious Diseases: None - Past Social History Smoking Status: Unknown If Ever Smoked - CARDIAC Hx Hypertension: Yes - RENAL Hx Chronic Kidney Disease: Yes Hx Dialysis: Yes Type of Dialysis Access: HD - ENDOCRINE/METABOLIC Hx Endocrine Disorders: Yes Hx Diabetes Mellitus Type 2: Yes - MUSCULOSKELETAL/RHEUMATOLOGICAL Hx Falls: No - PSYCHIATRIC Hx Substance Use: No - SURGICAL HISTORY Hx Orthopedic Surgery: Yes Meds Allergies/Adverse Reactions: Allergies Allergy/AdvReac Type Severity Reaction Status Date / Time No Known Allergies Allergy Unverified 08/12/13 00:40 - Medications Medications: Current Medications Glipizide (Glucotrol) 5 mg PO ACBD [facility] Heparin Sodium (Porcine) (Heparin) 5,000 units SC Q12 [facility] PRN Reason: Protocol Hydralazine HCl (Apresoline) 25 mg PO Q8H [facility] Last Admin: 08/19/17 10:45 Dose: 25 mg Sodium Chloride (Sodium Chloride 0.9%) 1,000 mls @ 100 mls/hr IV .Q10H [facility] Last Admin: 08/19/17 10:46 Dose: 100 mls/hr Acetaminophen (Ofirmev) 1,000 mg in 100 mls @ 400 mls/hr IVPB Q6H PRN PRN Reason: Temperature Stop: 08/21/17 03:37 Last Admin: 08/19/17 03:44 Dose: 400 mls/hr Meropenem 1 gm/ Dextrose 100 mls @ 100 mls/hr IVPB Q8 [facility] PRN Reason: Protocol Stop: 08/19/17 22:59 Insulin Detemir (Levemir) 8 unit SC HS [facility] Insulin Human Regular (Humulin R Low) 0 units SC ACHS [facility] PRN Reason: Protocol Pantoprazole Sodium (Protonix Inj) 40 mg IVP DAILY [facility] Last Admin: 08/19/17 10:44 Dose: 40 mg Physical Exam - Constitutional Appears: No Acute Distress - Head Exam Head Exam: ATRAUMATIC, NORMAL INSPECTION, NORMOCEPHALIC - Eye Exam Eye Exam: EOMI, Normal appearance - ENT Exam ENT Exam: Mucous Membranes Moist - Respiratory Exam Respiratory Exam: Clear to Auscultation Bilateral, NORMAL BREATHING PATTERN. absent: Wheezes, Respiratory Distress, Stridor - Cardiovascular Exam Cardiovascular Exam: REGULAR RHYTHM. absent: Tachycardia, Diastolic murmur, Systolic Murmur - GI/Abdominal Exam GI & Abdominal Exam: Normal Bowel Sounds, Soft. absent: Distended, Firm, Guarding - Extremities Exam Extremities exam: Positive for: normal inspection. Negative for: pedal edema, tenderness - Neurological Exam Neurological exam: CN II-XII Intact, Reflexes Normal Additional comments: alert and orient to person and place, not time - Expanded Neurological Exam Expanded Cranial nerves: EOM's Intact: Normal Upper motor neuron: Babinski Sign: Normal, Pronator Drift: Normal Neuro motor strength exam: Left Upper Extremity: 5, Right Upper Extremity: 5, Left Lower Extremity: 5, Right Lower Extremity: 5 - Skin Skin Exam: Dry, Intact, Normal Color, Warm Results - Vital Signs Recent Vital Signs: Last Vital Signs Temp 98.3 F 08/19/17 09:30 Pulse 79 08/19/17 10:45 Resp 21 08/19/17 08:00 BP 145/76 08/19/17 10:45 Pulse Ox 100 08/19/17 08:00 - Labs Result Diagrams: 08/18/17 23:00 08/19/17 09:00 Labs: Laboratory Results - last 24 hr 08/19/17 08/19/17 08/19/17 01:21 02:23 03:11 pO2 VBG pH VBG pCO2 VBG HCO3 VBG Total CO2 VBG O2 Sat (Calc) VBG Base Excess VBG Potassium Sodium Chloride Glucose Lactate FiO2 Potassium Carbon Dioxide Anion Gap BUN Creatinine Est GFR ( Amer) Est GFR (Non-Af Amer) POC Glucose (mg/dL) > 500 H* 434 H* 227 H Random Glucose Calcium Phosphorus Magnesium Total Bilirubin Direct Bilirubin AST ALT Alkaline Phosphatase Ammonia Total Protein Albumin Globulin Albumin/Globulin Ratio TSH 3rd Generation Venous Blood Potassium Salicylates Acetaminophen Alcohol, Quantitative 08/19/17 08/19/17 08/19/17 03:50 03:50 03:50 pO2 81 H VBG pH 7.42 VBG pCO2 40.0 VBG HCO3 25.9 VBG Total CO2 27.1 VBG O2 Sat (Calc) 96.8 H VBG Base Excess 1.3 VBG Potassium 3.2 L Sodium 141.0 140 Chloride 99.0 97 L Glucose 361 H Lactate 6.6 H* FiO2 21.0 Potassium 3.2 L Carbon Dioxide 25 Anion Gap 20 BUN 43 H Creatinine 7.4 H* Est GFR ( Amer) 7 Est GFR (Non-Af Amer) 6 POC Glucose (mg/dL) Random Glucose 343 H* D Calcium 9.9 Phosphorus 3.5 Magnesium 2.0 Total Bilirubin 0.9 Direct Bilirubin AST 57 H ALT 68 H Alkaline Phosphatase 122 Ammonia Total Protein 7.2 Albumin 4.0 Globulin 3.2 Albumin/Globulin Ratio 1.2 TSH 3rd Generation Venous Blood Potassium 3.2 L Salicylates Acetaminophen Alcohol, Quantitative 08/19/17 08/19/17 08/19/17 04:13 05:00 05:03 pO2 VBG pH VBG pCO2 VBG HCO3 VBG Total CO2 VBG O2 Sat (Calc) VBG Base Excess VBG Potassium Sodium Chloride Glucose Lactate FiO2 Potassium Carbon Dioxide Anion Gap BUN Creatinine Est GFR ( Amer) Est GFR (Non-Af Amer) POC Glucose (mg/dL) 311 H 236 H Random Glucose Calcium Phosphorus Magnesium Total Bilirubin Direct Bilirubin AST ALT Alkaline Phosphatase Ammonia Total Protein Albumin Globulin Albumin/Globulin Ratio TSH 3rd Generation 1.19 Venous Blood Potassium Salicylates Acetaminophen Alcohol, Quantitative < 10 08/19/17 08/19/17 08/19/17 06:10 07:08 07:24 pO2 VBG pH VBG pCO2 VBG HCO3 VBG Total CO2 VBG O2 Sat (Calc) VBG Base Excess VBG Potassium Sodium Chloride Glucose Lactate FiO2 Potassium Carbon Dioxide Anion Gap BUN Creatinine Est GFR ( Amer) Est GFR (Non-Af Amer) POC Glucose (mg/dL) 120 H 92 83 Random Glucose Calcium Phosphorus Magnesium Total Bilirubin Direct Bilirubin AST ALT Alkaline Phosphatase Ammonia Total Protein Albumin Globulin Albumin/Globulin Ratio TSH 3rd Generation Venous Blood Potassium Salicylates Acetaminophen Alcohol, Quantitative 08/19/17 08/19/17 08/19/17 09:00 09:00 09:00 pO2 33 VBG pH 7.38 VBG pCO2 52.0 VBG HCO3 30.8 H VBG Total CO2 32.4 H VBG O2 Sat (Calc) 65.6 H VBG Base Excess 4.4 H VBG Potassium 3.5 L Sodium 145 143.0 Chloride 102 103.0 Glucose 61 L Lactate 3.0 H FiO2 21.0 Potassium 3.6 Carbon Dioxide 29 Anion Gap 18 BUN 45 H Creatinine 7.1 H Est GFR ( Amer) 7 Est GFR (Non-Af Amer) 6 POC Glucose (mg/dL) Random Glucose 63 L Calcium 9.7 Phosphorus Magnesium Total Bilirubin 0.9 Direct Bilirubin 0.9 H AST 44 H D ALT 62 H Alkaline Phosphatase 116 Ammonia Total Protein 6.9 Albumin 3.8 Globulin 3.1 Albumin/Globulin Ratio 1.2 TSH 3rd Generation Venous Blood Potassium 3.5 L Salicylates < 1 L Acetaminophen < 10.0 L Alcohol, Quantitative 08/19/17 09:00 pO2 VBG pH VBG pCO2 VBG HCO3 VBG Total CO2 VBG O2 Sat (Calc) VBG Base Excess VBG Potassium Sodium Chloride Glucose Lactate FiO2 Potassium Carbon Dioxide Anion Gap BUN Creatinine Est GFR ( Amer) Est GFR (Non-Af Amer) POC Glucose (mg/dL) Random Glucose Calcium Phosphorus Magnesium Total Bilirubin Direct Bilirubin AST ALT Alkaline Phosphatase Ammonia < 9 L Total Protein Albumin Globulin Albumin/Globulin Ratio TSH 3rd Generation Venous Blood Potassium Salicylates Acetaminophen Alcohol, Quantitative Assessment & Plan - Assessment and Plan (Free Text) Assessment: 47 yo Female with PMH of IDDM type 2, ESRD on HD (TTS), HTN, osteomyelitis, HLD who was brought to the ER by EMS for altered mental status secondary to hyperglycemia, and HTN urgency 1. altered mental status secondary to hyperglycemia, and HTN urgency 2. HTN urgency 3. diabetes with hyperglycemia 4. ESRD on HD T,T,S - CT head showed no acute intracraninal abnormality - Will get MRI - keep sbp between 120-130 - maintain blood sugar 140-180 Patient seen and case discussed/reviewed with attending, Dr. Tovar <Christ Tovar - Last Filed: 08/19/17 18:04> Meds - Medications Medications: Current Medications Glipizide (Glucotrol) 5 mg PO ACBD [facility] Last Admin: 08/19/17 17:18 Dose: 5 mg Heparin Sodium (Porcine) (Heparin) 5,000 units SC Q12 [facility] PRN Reason: Protocol Hydralazine HCl (Apresoline) 25 mg PO Q8H [facility] Last Admin: 08/19/17 10:45 Dose: 25 mg Sodium Chloride (Sodium Chloride 0.9%) 1,000 mls @ 100 mls/hr IV .Q10H [facility] Last Admin: 08/19/17 10:46 Dose: 100 mls/hr Acetaminophen (Ofirmev) 1,000 mg in 100 mls @ 400 mls/hr IVPB Q6H PRN PRN Reason: Temperature Stop: 08/21/17 03:37 Last Admin: 08/19/17 03:44 Dose: 400 mls/hr Meropenem 1 gm/ Dextrose 100 mls @ 100 mls/hr IVPB Q8 [facility] PRN Reason: Protocol Stop: 08/19/17 22:59 Last Admin: 08/19/17 17:26 Dose: 100 mls/hr Insulin Detemir (Levemir) 8 unit SC HS [facility] Insulin Human Regular (Humulin R Low) 0 units SC ACHS [facility] PRN Reason: Protocol Last Admin: 08/19/17 17:12 Dose: Not Given Pantoprazole Sodium (Protonix Inj) 40 mg IVP DAILY [facility] Last Admin: 08/19/17 10:44 Dose: 40 mg Results - Vital Signs Recent Vital Signs: Last Vital Signs Temp 98.3 F 08/19/17 09:30 Pulse 79 08/19/17 10:45 Resp 21 08/19/17 08:00 BP 145/76 08/19/17 10:45 Pulse Ox 100 08/19/17 08:00 - Labs Result Diagrams: 08/18/17 23:00 08/19/17 09:00 Labs: Laboratory Results - last 24 hr 08/19/17 08/19/17 08/19/17 01:21 02:23 03:11 pO2 VBG pH VBG pCO2 VBG HCO3 VBG Total CO2 VBG O2 Sat (Calc) VBG Base Excess VBG Potassium Sodium Chloride Glucose Lactate FiO2 Potassium Carbon Dioxide Anion Gap BUN Creatinine Est GFR ( Amer) Est GFR (Non-Af Amer) POC Glucose (mg/dL) > 500 H* 434 H* 227 H Random Glucose Calcium Phosphorus Magnesium Total Bilirubin Direct Bilirubin AST ALT Alkaline Phosphatase Ammonia Total Protein Albumin Globulin Albumin/Globulin Ratio TSH 3rd Generation Venous Blood Potassium Salicylates Acetaminophen Alcohol, Quantitative 08/19/17 08/19/17 08/19/17 03:50 03:50 03:50 pO2 81 H VBG pH 7.42 VBG pCO2 40.0 VBG HCO3 25.9 VBG Total CO2 27.1 VBG O2 Sat (Calc) 96.8 H VBG Base Excess 1.3 VBG Potassium 3.2 L Sodium 141.0 140 Chloride 99.0 97 L Glucose 361 H Lactate 6.6 H* FiO2 21.0 Potassium 3.2 L Carbon Dioxide 25 Anion Gap 20 BUN 43 H Creatinine 7.4 H* Est GFR ( Amer) 7 Est GFR (Non-Af Amer) 6 POC Glucose (mg/dL) Random Glucose 343 H* D Calcium 9.9 Phosphorus 3.5 Magnesium 2.0 Total Bilirubin 0.9 Direct Bilirubin AST 57 H ALT 68 H Alkaline Phosphatase 122 Ammonia Total Protein 7.2 Albumin 4.0 Globulin 3.2 Albumin/Globulin Ratio 1.2 TSH 3rd Generation Venous Blood Potassium 3.2 L Salicylates Acetaminophen Alcohol, Quantitative 08/19/17 08/19/17 08/19/17 04:13 05:00 05:03 pO2 VBG pH VBG pCO2 VBG HCO3 VBG Total CO2 VBG O2 Sat (Calc) VBG Base Excess VBG Potassium Sodium Chloride Glucose Lactate FiO2 Potassium Carbon Dioxide Anion Gap BUN Creatinine Est GFR ( Amer) Est GFR (Non-Af Amer) POC Glucose (mg/dL) 311 H 236 H Random Glucose Calcium Phosphorus Magnesium Total Bilirubin Direct Bilirubin AST ALT Alkaline Phosphatase Ammonia Total Protein Albumin Globulin Albumin/Globulin Ratio TSH 3rd Generation 1.19 Venous Blood Potassium Salicylates Acetaminophen Alcohol, Quantitative < 10 08/19/17 08/19/17 08/19/17 06:10 07:08 07:24 pO2 VBG pH VBG pCO2 VBG HCO3 VBG Total CO2 VBG O2 Sat (Calc) VBG Base Excess VBG Potassium Sodium Chloride Glucose Lactate FiO2 Potassium Carbon Dioxide Anion Gap BUN Creatinine Est GFR ( Amer) Est GFR (Non-Af Amer) POC Glucose (mg/dL) 120 H 92 83 Random Glucose Calcium Phosphorus Magnesium Total Bilirubin Direct Bilirubin AST ALT Alkaline Phosphatase Ammonia Total Protein Albumin Globulin Albumin/Globulin Ratio TSH 3rd Generation Venous Blood Potassium Salicylates Acetaminophen Alcohol, Quantitative 08/19/17 08/19/17 08/19/17 09:00 09:00 09:00 pO2 33 VBG pH 7.38 VBG pCO2 52.0 VBG HCO3 30.8 H VBG Total CO2 32.4 H VBG O2 Sat (Calc) 65.6 H VBG Base Excess 4.4 H VBG Potassium 3.5 L Sodium 145 143.0 Chloride 102 103.0 Glucose 61 L Lactate 3.0 H FiO2 21.0 Potassium 3.6 Carbon Dioxide 29 Anion Gap 18 BUN 45 H Creatinine 7.1 H Est GFR ( Amer) 7 Est GFR (Non-Af Amer) 6 POC Glucose (mg/dL) Random Glucose 63 L Calcium 9.7 Phosphorus Magnesium Total Bilirubin 0.9 Direct Bilirubin 0.9 H AST 44 H D ALT 62 H Alkaline Phosphatase 116 Ammonia Total Protein 6.9 Albumin 3.8 Globulin 3.1 Albumin/Globulin Ratio 1.2 TSH 3rd Generation Venous Blood Potassium 3.5 L Salicylates < 1 L Acetaminophen < 10.0 L Alcohol, Quantitative 08/19/17 09:00 pO2 VBG pH VBG pCO2 VBG HCO3 VBG Total CO2 VBG O2 Sat (Calc) VBG Base Excess VBG Potassium Sodium Chloride Glucose Lactate FiO2 Potassium Carbon Dioxide Anion Gap BUN Creatinine Est GFR ( Amer) Est GFR (Non-Af Amer) POC Glucose (mg/dL) Random Glucose Calcium Phosphorus Magnesium Total Bilirubin Direct Bilirubin AST ALT Alkaline Phosphatase Ammonia < 9 L Total Protein Albumin Globulin Albumin/Globulin Ratio TSH 3rd Generation Venous Blood Potassium Salicylates Acetaminophen Alcohol, Quantitative Attending/Attestation - Attestation I have personally seen and examined this patient.: Yes I have fully participated in the care of the patient.: Yes I have reviewed all pertinent clinical information: Yes
[2017-08-19] MEDS: Insulin Reg-LOW-Coverage SC SCH ×2 (17:12→21:41)
[2017-08-19] MEDS: Meropenem 1 GM in Dextrose 5% In Water 100 ML IVPB SCH ×2 (17:26→21:48)
--- NOTE | 2017-08-19 20:37 | MRI ---
EXAM: MR Head Without Intravenous Contrast EXAM DATE/TIME: 08/19/2017 1:28 PM CLINICAL HISTORY: The patient age is 47 years old and is female; Signs and symptoms; Altered mental status/memory loss; Additional info: [facility] Facility exam id and description: Mri br s brain without contrast TECHNIQUE: Magnetic resonance images of the head/brain without intravenous contrast in multiple planes. COMPARISON: CT - HEAD W/O CONTRAST 2017-08-18 23:28 FINDINGS: Brain: There are periventricular foci of high FLAIR signal intensity, with involvement of the bilateral basal ganglia. There is no mass effect or restricted diffusion associated with these foci. This is nonspecific as to etiology. Possible etiologies include chronic small vessel ischemic disease, post-traumatic change, as well as additional infectious, inflammatory and autoimmune etiologies. Demyelination is within the differential for the periventricular foci, although atypical for involvement of the basal ganglia. There is no restricted diffusion within the brain to suggest acute ischemic change. There is mild sulcal atrophy. Ventricles: No ventriculomegaly. Bones/joints: No acute abnormality. Sinuses: A mucus retention cyst or polyp is visualized within the right maxillary sinus. No acute sinusitis. Mastoid air cells: There is mucosal thickening of the bilateral mastoid air cells. Orbits: There is bilateral proptosis. IMPRESSION: 1. There are periventricular foci of high FLAIR signal intensity, with involvement of the bilateral basal ganglia. This is nonspecific as to etiology, as detailed above. Further clinical evaluation and postcontrast sequences are recommended. 2. There is no restricted diffusion within the brain to suggest acute ischemic change. 3. There is mild sulcal atrophy. 4. Paranasal sinus disease is noted above. 5. Additional findings described above.
--- NOTE | 2017-08-19 21:11 | CP.PCM.CON ---
History of Present Illness - History of Present Illness History of Present Illness: Infectious Disease Consultation: August 19, 2017 47 yo female with extensive past medical history that includes IDDM type 2, ESRD on HD (T/R/S), HTN, osteomyelitis, HLD who was brought to the ER by EMS, called by her boyfriend for altered mental status and lethargy. Patient was lethargic, further history obtained by ICU team from her daughter who was at bedside. Patient had reportedly recently (about 1 week ago) been admitted to [facility] where she was being treated for pneumonia, and was ultimately discharged with a PO course of antibiotics. According to the daughter, patient was not taking anything for the pneumonia after leaving the hospital, and continued to have a cough productive of green sputum, as well as fever and malaise. She was also not taking any of her other medications for the past 2-3 days, as she has been staying at her friend's home where she doesn't have access to them. Daughter does think she went to dialysis as scheduled on Saturday, but cannot confirm with certainty. Further ROS and HPI limited by patient's mental status. Patient states that she did go to HD on Saturday. The patient had hyperglycemia and hypertensive urgency on admission here. She is more awake and alert now. PMHx: IDDM type 2, ESRD on HD, HTN, osteomyelitis, HLD PSHx: dialysis access Allergies: NKDA Social Hx: No tobacco, EtOH, or illicit drug use Active Medications Glipizide (Glucotrol) 5 mg PO ACBD [facility] Last Admin: 08/19/17 17:18 Dose: 5 mg Heparin Sodium (Porcine) (Heparin) 5,000 units SC Q12 [facility] PRN Reason: Protocol Hydralazine HCl (Apresoline) 25 mg PO Q8H [facility] Last Admin: 08/19/17 18:42 Dose: 25 mg Sodium Chloride (Sodium Chloride 0.9%) 1,000 mls @ 100 mls/hr IV .Q10H [facility] Last Admin: 08/19/17 20:34 Dose: 100 mls/hr Acetaminophen (Ofirmev) 1,000 mg in 100 mls @ 400 mls/hr IVPB Q6H PRN PRN Reason: Temperature Stop: 08/21/17 03:37 Last Admin: 08/19/17 03:44 Dose: 400 mls/hr Meropenem 1 gm/ Dextrose 100 mls @ 100 mls/hr IVPB Q8 [facility] PRN Reason: Protocol Stop: 08/19/17 22:59 Last Admin: 08/19/17 17:26 Dose: 100 mls/hr Insulin Detemir (Levemir) 8 unit SC HS [facility] Insulin Human Regular (Humulin R Low) 0 units SC ACHS [facility] PRN Reason: Protocol Last Admin: 08/19/17 17:12 Dose: Not Given Pantoprazole Sodium (Protonix Inj) 40 mg IVP DAILY [facility] Last Admin: 08/19/17 10:44 Dose: 40 mg Family Hx: none given ROS: Unable to fully obtain. Past Patient History - Infectious Disease Hx of Infectious Diseases: None - Past Social History Smoking Status: Unknown If Ever Smoked - CARDIAC Hx Hypertension: Yes - RENAL Hx Chronic Kidney Disease: Yes Hx Dialysis: Yes Type of Dialysis Access: HD - ENDOCRINE/METABOLIC Hx Endocrine Disorders: Yes Hx Diabetes Mellitus Type 2: Yes - MUSCULOSKELETAL/RHEUMATOLOGICAL Hx Falls: No - PSYCHIATRIC Hx Substance Use: No - SURGICAL HISTORY Hx Orthopedic Surgery: Yes Meds Allergies/Adverse Reactions: Allergies Allergy/AdvReac Type Severity Reaction Status Date / Time No Known Allergies Allergy Unverified 08/12/13 00:40 - Medications Medications: Current Medications Glipizide (Glucotrol) 5 mg PO ACBD [facility] Last Admin: 08/19/17 17:18 Dose: 5 mg Heparin Sodium (Porcine) (Heparin) 5,000 units SC Q12 [facility] PRN Reason: Protocol Hydralazine HCl (Apresoline) 25 mg PO Q8H [facility] Last Admin: 08/19/17 18:42 Dose: 25 mg Sodium Chloride (Sodium Chloride 0.9%) 1,000 mls @ 100 mls/hr IV .Q10H [facility] Last Admin: 08/19/17 20:34 Dose: 100 mls/hr Acetaminophen (Ofirmev) 1,000 mg in 100 mls @ 400 mls/hr IVPB Q6H PRN PRN Reason: Temperature Stop: 08/21/17 03:37 Last Admin: 08/19/17 03:44 Dose: 400 mls/hr Meropenem 1 gm/ Dextrose 100 mls @ 100 mls/hr IVPB Q8 [facility] PRN Reason: Protocol Stop: 08/19/17 22:59 Last Admin: 08/19/17 17:26 Dose: 100 mls/hr Insulin Detemir (Levemir) 8 unit SC HS [facility] Insulin Human Regular (Humulin R Low) 0 units SC ACHS [facility] PRN Reason: Protocol Last Admin: 08/19/17 17:12 Dose: Not Given Pantoprazole Sodium (Protonix Inj) 40 mg IVP DAILY [facility] Last Admin: 08/19/17 10:44 Dose: 40 mg Physical Exam - Constitutional Appears: No Acute Distress - Head Exam Head Exam: ATRAUMATIC, NORMOCEPHALIC - Eye Exam Eye Exam: EOMI, PERRL Pupil Exam: NORMAL ACCOMODATION, PERRL - ENT Exam ENT Exam: Mucous Membranes Moist, Normal External Ear Exam, TM's Normal Bilaterally - Respiratory Exam Respiratory Exam: Decreased Breath Sounds, NORMAL BREATHING PATTERN. absent: Rales, Rhonchi, Wheezes - Cardiovascular Exam Cardiovascular Exam: REGULAR RHYTHM, RRR, +S1, +S2 - GI/Abdominal Exam GI & Abdominal Exam: Normal Bowel Sounds, Soft. absent: Distended, Tenderness - Extremities Exam Extremities exam: Positive for: normal inspection. Negative for: joint swelling , pedal edema - Neurological Exam Neurological exam: Alert, CN II-XII Intact Additional comments: AAO x 2 Results - Vital Signs Recent Vital Signs: Last Vital Signs Temp 97.3 F L 08/19/17 17:30 Pulse 78 08/19/17 18:42 Resp 16 08/19/17 10:45 BP 135/60 08/19/17 18:42 Pulse Ox 100 08/19/17 08:00 - Labs Result Diagrams: 08/18/17 23:00 08/19/17 09:00 Labs: Laboratory Results - last 24 hr 08/19/17 08/19/17 08/19/17 01:21 02:23 03:11 pO2 VBG pH VBG pCO2 VBG HCO3 VBG Total CO2 VBG O2 Sat (Calc) VBG Base Excess VBG Potassium Sodium Chloride Glucose Lactate FiO2 Potassium Carbon Dioxide Anion Gap BUN Creatinine Est GFR ( Amer) Est GFR (Non-Af Amer) POC Glucose (mg/dL) > 500 H* 434 H* 227 H Random Glucose Calcium Phosphorus Magnesium Total Bilirubin Direct Bilirubin AST ALT Alkaline Phosphatase Ammonia Total Protein Albumin Globulin Albumin/Globulin Ratio TSH 3rd Generation Venous Blood Potassium Salicylates Acetaminophen Alcohol, Quantitative Hepatitis A IgM Ab Hep Bs Antigen Hep B Core IgM Ab Hepatitis C Antibody 08/19/17 08/19/17 08/19/17 03:50 03:50 03:50 pO2 81 H VBG pH 7.42 VBG pCO2 40.0 VBG HCO3 25.9 VBG Total CO2 27.1 VBG O2 Sat (Calc) 96.8 H VBG Base Excess 1.3 VBG Potassium 3.2 L Sodium 141.0 140 Chloride 99.0 97 L Glucose 361 H Lactate 6.6 H* FiO2 21.0 Potassium 3.2 L Carbon Dioxide 25 Anion Gap 20 BUN 43 H Creatinine 7.4 H* Est GFR ( Amer) 7 Est GFR (Non-Af Amer) 6 POC Glucose (mg/dL) Random Glucose 343 H* D Calcium 9.9 Phosphorus 3.5 Magnesium 2.0 Total Bilirubin 0.9 Direct Bilirubin AST 57 H ALT 68 H Alkaline Phosphatase 122 Ammonia Total Protein 7.2 Albumin 4.0 Globulin 3.2 Albumin/Globulin Ratio 1.2 TSH 3rd Generation Venous Blood Potassium 3.2 L Salicylates Acetaminophen Alcohol, Quantitative Hepatitis A IgM Ab Hep Bs Antigen Hep B Core IgM Ab Hepatitis C Antibody 08/19/17 08/19/17 08/19/17 04:13 05:00 05:03 pO2 VBG pH VBG pCO2 VBG HCO3 VBG Total CO2 VBG O2 Sat (Calc) VBG Base Excess VBG Potassium Sodium Chloride Glucose Lactate FiO2 Potassium Carbon Dioxide Anion Gap BUN Creatinine Est GFR ( Amer) Est GFR (Non-Af Amer) POC Glucose (mg/dL) 311 H 236 H Random Glucose Calcium Phosphorus Magnesium Total Bilirubin Direct Bilirubin AST ALT Alkaline Phosphatase Ammonia Total Protein Albumin Globulin Albumin/Globulin Ratio TSH 3rd Generation 1.19 Venous Blood Potassium Salicylates Acetaminophen Alcohol, Quantitative < 10 Hepatitis A IgM Ab Hep Bs Antigen Hep B Core IgM Ab Hepatitis C Antibody 08/19/17 08/19/17 08/19/17 06:10 07:08 07:24 pO2 VBG pH VBG pCO2 VBG HCO3 VBG Total CO2 VBG O2 Sat (Calc) VBG Base Excess VBG Potassium Sodium Chloride Glucose Lactate FiO2 Potassium Carbon Dioxide Anion Gap BUN Creatinine Est GFR ( Amer) Est GFR (Non-Af Amer) POC Glucose (mg/dL) 120 H 92 83 Random Glucose Calcium Phosphorus Magnesium Total Bilirubin Direct Bilirubin AST ALT Alkaline Phosphatase Ammonia Total Protein Albumin Globulin Albumin/Globulin Ratio TSH 3rd Generation Venous Blood Potassium Salicylates Acetaminophen Alcohol, Quantitative Hepatitis A IgM Ab Hep Bs Antigen Hep B Core IgM Ab Hepatitis C Antibody 08/19/17 08/19/17 08/19/17 09:00 09:00 09:00 pO2 33 VBG pH 7.38 VBG pCO2 52.0 VBG HCO3 30.8 H VBG Total CO2 32.4 H VBG O2 Sat (Calc) 65.6 H VBG Base Excess 4.4 H VBG Potassium 3.5 L Sodium 145 143.0 Chloride 102 103.0 Glucose 61 L Lactate 3.0 H FiO2 21.0 Potassium 3.6 Carbon Dioxide 29 Anion Gap 18 BUN 45 H Creatinine 7.1 H Est GFR ( Amer) 7 Est GFR (Non-Af Amer) 6 POC Glucose (mg/dL) Random Glucose 63 L Calcium 9.7 Phosphorus Magnesium Total Bilirubin 0.9 Direct Bilirubin 0.9 H AST 44 H D ALT 62 H Alkaline Phosphatase 116 Ammonia Total Protein 6.9 Albumin 3.8 Globulin 3.1 Albumin/Globulin Ratio 1.2 TSH 3rd Generation Venous Blood Potassium 3.5 L Salicylates Acetaminophen Alcohol, Quantitative Hepatitis A IgM Ab Negative Hep Bs Antigen Negative Hep B Core IgM Ab Negative Hepatitis C Antibody Negative 08/19/17 08/19/17 09:00 09:00 pO2 VBG pH VBG pCO2 VBG HCO3 VBG Total CO2 VBG O2 Sat (Calc) VBG Base Excess VBG Potassium Sodium Chloride Glucose Lactate FiO2 Potassium Carbon Dioxide Anion Gap BUN Creatinine Est GFR ( Amer) Est GFR (Non-Af Amer) POC Glucose (mg/dL) Random Glucose Calcium Phosphorus Magnesium Total Bilirubin Direct Bilirubin AST ALT Alkaline Phosphatase Ammonia < 9 L Total Protein Albumin Globulin Albumin/Globulin Ratio TSH 3rd Generation Venous Blood Potassium Salicylates < 1 L Acetaminophen < 10.0 L Alcohol, Quantitative Hepatitis A IgM Ab Hep Bs Antigen Hep B Core IgM Ab Hepatitis C Antibody Assessment & Plan - Assessment and Plan (Free Text) Assessment: 47 yo female with AMS on presentation to [facility] [place]. Recently at [facility]. The patient Chest X-ray with evidence of CHF. MRI of brain done. The patient with no leukocytosis. Fevers up to 104 F. On Meropenem IV for now. Awaiting cultures. Will check records at [facility]. On HD for her ESRD. Supportive care. Vancomycin dosing based on levels. Thank you for allowing me to participate in the care of the patient, we will follow with you.
[2017-08-19] MEDS: Insulin Detemir 100 units/ml Vial (Levemir) SC SCH (21:42)
--- NOTE | 2017-08-19 21:43 | CON ---
DATE: LOCATION: ICU 129, room 4. HISTORY OF PRESENT ILLNESS: This is a 47-year-old female with known history of type 2 diabetes and hypertension, presenting here with generalized body weakness and progressive bouts of dizziness and lightheadedness and evaluated to have possible bacteremia and underlying sepsis and is now being referred for diabetic evaluation and management. PAST MEDICAL HISTORY: As mentioned above, history of type 2 diabetes, currently on metformin which is quite surprising as the patient has end stage renal disease as noted. History of hypertension and dyslipidemia, history of coronary artery disease and peripheral arterial disease and vasculopathy with previous toe amputations as noted. History of diabetic retinopathy, polyneuropathy and nephropathy with end-stage renal disease and dialysis dependence. FAMILY HISTORY: Positive for diabetes and hypertension. SOCIAL HISTORY: The patient has supportive family. No known substance use. REVIEW OF SYSTEMS: As mentioned above. Admits to generalized body weakness with easy fatigability and tiredness and suboptimal energy level. Also admits to dizziness and lightheadedness worse on the day of admission, admits to precordial chest pain with progressive shortness of breath especially on exertion and also paroxysmal nocturnal dyspnea. Her oral intake is variable with nausea, dyspepsia, and vague upper abdominal pains. She admits to intractable nausea, dyspepsia, and vomiting episodes. PHYSICAL EXAMINATION: GENERAL: This is an average-built female in no apparent distress. VITAL SIGNS: Blood pressure 140/80, pulse of 70 beats per minute and regular, temperature 98, respirations 20, height is 5'4", weight is 162 pounds. HEENT: Head is normocephalic. Eyes anicteric with pink conjunctivae. Funduscopy not possible at this time. Ears, nose and throat otherwise normal. NECK: Supple. Thyroid gland is normal in size. No carotid bruits or cervical adenopathy. CARDIOPULMONARY: Adynamic precordium. S1, S2 is rapid and regular. LUNGS: Clear to auscultation. ABDOMEN: Flat, soft with positive bowel sounds. EXTREMITIES: No peripheral edema. Pulses are diminished peripherally. LABORATORY DATA: Chemistries showed BUN of 45, sodium 145, potassium 3.6, chloride 102, CO2 of 29, glucose 63, and creatinine 7.1. Her ammonia level is less than 9. ASSESSMENT: This is a 47-year-old female with uncontrolled and decompensated type 2 insulin-requiring diabetes with hyperosmolar hyperglycemic state as noted and also with concomitant diabetic microvascular complications of retinopathy, polyneuropathy, and nephropathy with end-stage renal disease and dialysis dependence. She also has diabetic macrovascular complications of coronary artery disease with previous stent placement and also peripheral arterial disease and vasculopathy with previous toe amputations in the right foot as noted. PLAN OF MANAGEMENT: As discussed with the patient, we will modify her current insulin regimen as she has a very poor oral intake with supervening symptomatic hypoglycemic episodes as noted thereof. Her glucose levels today have ranged from 63-83 mg/dL. So at this time, we will lower the Levemir to only once daily at 8 units subcutaneous at bedtime daily to start tonight. We will also add glipizide given as 5 mg p.o. b.i.d. before meals to start today as ordered. We will modify the coverage scale to obviate hypoglycemia, and detailed orders have been given. We will obtain a hemoglobin A1c. We will obtain serial chemistries and supplement accordingly as needed. We will also titrate her dose regimen to optimize metabolic control. If hyperglycemic levels supervene, then we will switch her over to a more physiologic basal and bolus insulin drug combination as indicated. We will follow. Sachi Magana MD
[2017-08-19] MEDS ORDERED: Insulin Human NPH 1 UNITS/0.01 ML SC SCH (22:00)
[2017-08-19] MEDS ORDERED: Insulin Detemir 100 units/ml Vial (Levemir) SC SCH (22:00)
[2017-08-19] MEDS ORDERED: Cefepime 1gm in NS 100ml 1 GM/100 ML BAG IVPB SCH (23:00)
--- NOTE | 2017-08-19 23:35 | CARD ---
APPROVED REPORT EKG Measurement Heart [id number] MD [id number] <Conclusion> Sinus tachycardia Possible Left atrial enlargement ST abnormality, possible digitalis effect Abnormal ECG
[2017-08-20] MEDS: Insulin Reg-LOW-Coverage SC SCH ×4 (08:17→22:17)
--- NOTE | 2017-08-20 10:20 | CP.PCM.PN ---
<Leigha Navarro - Last Filed: 08/20/17 18:00> Subjective - Date & Time of Evaluation Date of Evaluation: 08/20/17 Time of Evaluation: 10:17 - Subjective Subjective: PGY-[address] Tovar's service Patient seen and examined at bedside. No acute distress. Patient reports a mild headache. She denies dizziness, lightheadedness, focal weakness, chest pain, sob. Objective - Vital Signs/Intake and Output Vital Signs (last 24 hours): Temp Pulse Resp BP Pulse Ox 98 F 73 18 134/100 H 99 08/20/17 06:00 08/20/17 06:00 08/20/17 06:00 08/20/17 06:00 08/20/17 06:00 Intake and Output: 08/20/17 08/20/17 06:59 18:59 Intake Total 1450 1100 Output Total 1 Balance 1449 1100 - Medications Medications: Current Medications Glipizide (Glucotrol) 5 mg PO ACBD [facility] Last Admin: 08/20/17 09:00 Dose: 5 mg Heparin Sodium (Porcine) (Heparin) 5,000 units SC Q12 [facility] PRN Reason: Protocol Last Admin: 08/20/17 09:00 Dose: 5,000 units Hydralazine HCl (Apresoline) 25 mg PO Q8H [facility] Last Admin: 08/20/17 02:06 Dose: 25 mg Acetaminophen (Ofirmev) 1,000 mg in 100 mls @ 400 mls/hr IVPB [facility]6H [facility] PRN Reason: Temperature Stop: 08/21/17 03:37 Last Admin: 08/19/17 03:44 Dose: 400 mls/hr Insulin Detemir (Levemir) 8 unit SC HS [facility] Last Admin: 08/19/17 21:42 Dose: Not Given Insulin Human Regular (Humulin R Low) 0 units SC ACHS [facility] PRN Reason: Protocol Last Admin: 08/20/17 08:17 Dose: Not Given Pantoprazole Sodium (Protonix Inj) 40 mg IVP DAILY [facility] Last Admin: 08/20/17 09:00 Dose: 40 mg Vitamin B Complex/Vit C/Folic Acid (Nephro-Manju) 1 tab PO 0800 [facility] - Labs Labs: 08/19/17 09:00 PT 12.9 SECONDS (9.4-12.5) H 08/18/17 23:00 INR 1.18 (0.93-1.08) H 08/18/17 23:00 APTT 33.6 Seconds (25.1-36.5) 08/18/17 23:00 - Constitutional Appears: Well, No Acute Distress - Head Exam Head Exam: ATRAUMATIC, NORMAL INSPECTION, NORMOCEPHALIC - Eye Exam Eye Exam: EOMI, Normal appearance - ENT Exam ENT Exam: Mucous Membranes Moist - Respiratory Exam Respiratory Exam: Clear to Ausculation Bilateral, NORMAL BREATHING PATTERN. absent: Rhonchi, Wheezes, Respiratory Distress - Cardiovascular Exam Cardiovascular Exam: REGULAR RHYTHM, +S1, +S2. absent: Tachycardia, Murmur - GI/Abdominal Exam GI & Abdominal Exam: Soft, Normal Bowel Sounds. absent: Distended, Firm, Guarding, Tenderness - Extremities Exam Extremities Exam: Normal Inspection. absent: Pedal Edema, Tenderness - Neurological Exam Neurological Exam: Alert, Awake, CN II-XII Intact, Oriented x3 Additional comments: 4/5 muscle strength in upper extremities due to cervical spine surgery, 5/5 lower extremity - Skin Skin Exam: Dry, Intact, Normal Color, Warm Assessment and Plan - Assessment and Plan (Free Text) Assessment: 47 yo Female with PMH of IDDM type 2, ESRD on HD (TTS), HTN, osteomyelitis, HLD who was brought to the ER by EMS for altered mental status secondary to hyperglycemia, and HTN urgency 1. altered mental status secondary to hyperglycemia, and HTN urgency 2. HTN urgency 3. diabetes with hyperglycemia 4. possible sepsis 5. ESRD on HD T,T,S - CT head showed no acute intracraninal abnormality - MRI is negative for ischemic changes - labs reviewed - keep systolic blood pressure between 120-130 - maintain blood sugar 140-180 Thank you for the consult, please reconsult if needed Patient seen and case discussed/reviewed with attending, Dr. Tovar <Christ Tovar - Last Filed: 08/21/17 09:18> Objective - Vital Signs/Intake and Output Vital Signs (last 24 hours): Temp Pulse Resp BP Pulse Ox 98.3 F 82 20 153/86 H 94 L 08/21/17 06:00 08/21/17 06:00 08/21/17 06:00 08/21/17 06:00 08/21/17 06:00 - Medications Medications: Current Medications Heparin Sodium (Porcine) (Heparin) 5,000 units SC Q12 [facility] PRN Reason: Protocol Last Admin: 08/20/17 22:15 Dose: 5,000 units Hydralazine HCl (Apresoline) 25 mg PO Q8H [facility] Last Admin: 08/21/17 01:40 Dose: 25 mg Cefepime HCl (Maxipime 1gm) 1 gm in 100 mls @ 100 mls/hr IVPB Q12 [facility] PRN Reason: Protocol Last Admin: 08/20/17 22:14 Dose: 100 mls/hr Insulin Detemir (Levemir) 12 unit SC HS [facility] Insulin Human Regular (Humulin R Low) 0 units SC ACHS [facility] PRN Reason: Protocol Last Admin: 08/21/17 08:27 Dose: Not Given Ondansetron HCl (Zofran Inj) 4 mg IVP Q6H [facility] PRN Reason: Nausea/Vomiting Last Admin: 08/20/17 18:35 Dose: 4 mg Pantoprazole Sodium (Protonix Inj) 40 mg IVP DAILY [facility] Last Admin: 08/20/17 09:00 Dose: 40 mg Repaglinide (Prandin) 2 mg PO AC [facility] Last Admin: 08/21/17 08:48 Dose: Not Given Vitamin B Complex/Vit C/Folic Acid (Nephro-Manju) 1 tab PO 0800 [facility] - Labs Labs: 08/21/17 08:50 08/19/17 09:00 PT 12.9 SECONDS (9.4-12.5) H 08/18/17 23:00 INR 1.18 (0.93-1.08) H 08/18/17 23:00 APTT 33.6 Seconds (25.1-36.5) 08/18/17 23:00 Attending/Attestation - Attestation I have personally seen and examined this patient.: Yes I have fully participated in the care of the patient.: Yes I have reviewed all pertinent clinical information, including history, physical exam and plan: Yes
--- NOTE | 2017-08-20 11:14 | CP.PCM.PN ---
<Carlos Pro - Last Filed: 08/20/17 13:27> Subjective - Date & Time of Evaluation Date of Evaluation: 08/20/17 Time of Evaluation: 07:25 - Subjective Subjective: Carlos Pro DO, PGY-1: Hospitalist Service Dr. Contreras Patient seen and examined at bedside. Patient denies any chest pain, shortness of breath, nausea, vomiting, or diarrhea. Patient complains that her speech is a bit garbled since yesterday. Objective - Vital Signs/Intake and Output Vital Signs (last 24 hours): Temp Pulse Resp BP Pulse Ox 98 F 73 18 134/100 H 99 08/20/17 06:00 08/20/17 06:00 08/20/17 06:00 08/20/17 06:00 08/20/17 06:00 Intake and Output: 08/20/17 08/20/17 06:59 18:59 Intake Total 1450 1100 Output Total 1 Balance 1449 1100 - Medications Medications: Current Medications Glipizide (Glucotrol) 5 mg PO ACBD [facility] Last Admin: 08/20/17 09:00 Dose: 5 mg Heparin Sodium (Porcine) (Heparin) 5,000 units SC Q12 [facility] PRN Reason: Protocol Last Admin: 08/20/17 09:00 Dose: 5,000 units Hydralazine HCl (Apresoline) 25 mg PO Q8H [facility] Last Admin: 08/20/17 02:06 Dose: 25 mg Acetaminophen (Ofirmev) 1,000 mg in 100 mls @ 400 mls/hr IVPB Q6H PRN PRN Reason: Temperature Stop: 08/21/17 03:37 Last Admin: 08/19/17 03:44 Dose: 400 mls/hr Insulin Detemir (Levemir) 8 unit SC HS [facility] Last Admin: 08/19/17 21:42 Dose: Not Given Insulin Human Regular (Humulin R Low) 0 units SC ACHS [facility] PRN Reason: Protocol Last Admin: 08/20/17 08:17 Dose: Not Given Pantoprazole Sodium (Protonix Inj) 40 mg IVP DAILY [facility] Last Admin: 08/20/17 09:00 Dose: 40 mg Vitamin B Complex/Vit C/Folic Acid (Nephro-Manju) 1 tab PO 0800 [facility] - Labs Labs: 08/19/17 09:00 PT 12.9 SECONDS (9.4-12.5) H 08/18/17 23:00 INR 1.18 (0.93-1.08) H 08/18/17 23:00 APTT 33.6 Seconds (25.1-36.5) 08/18/17 23:00 - Constitutional Appears: Well, Non-toxic - Head Exam Head Exam: ATRAUMATIC, NORMOCEPHALIC - Eye Exam Eye Exam: EOMI, Normal appearance - ENT Exam ENT Exam: Mucous Membranes Moist, Normal Oropharynx - Neck Exam Neck Exam: Normal Inspection - Respiratory Exam Respiratory Exam: Clear to Ausculation Bilateral - Cardiovascular Exam Cardiovascular Exam: RRR, +S1, +S2 - GI/Abdominal Exam GI & Abdominal Exam: Soft, Normal Bowel Sounds. absent: Tenderness, Rebound - Extremities Exam Extremities Exam: Normal Capillary Refill, Normal Inspection - Back Exam Back Exam: NORMAL INSPECTION. absent: CVA tenderness (L), CVA tenderness (R) - Neurological Exam Neurological Exam: Alert, Awake, CN II-XII Intact, Oriented x3 - Psychiatric Exam Additional comments: patient sometimes laughs inappropriately - Skin Skin Exam: Dry, Normal Color, Warm Assessment and Plan - Assessment and Plan (Free Text) Assessment: 47 yo F with PMH of IDDM type 2, ESRD on HD three times a week, HTN, osteomyelitis, HLD who was brought to the ER by EMS for altered mental status and lethargy. Active treatment for altered mental status secondary to hypertensive emergency, sepsis secondary to hospital-acquired pneumonia, hyperosmolar hyperglycemic state. Plan: 1) Altered Mental Status, likely multifactorial in nature-HHS, hypertensive emergency, acute on chronic kidney failure. - Today, patient's mental status is much improved, patient is not hallucinating and laughing innappropriately. - MRI of the brain reveals: There are periventricular foci of high FLAIR signal intensity, with involvement of the bilateral basal ganglia. This is nonspecific as to etiology, as detailed above. Further clinical evaluation and postcontrast sequences are recommended. There is no restricted diffusion within the brain to suggest acute ischemic change. There is mild sulcal atrophy. Paranasal sinus disease is noted above. -Neurology consult appreciated. 2)Hospital Acquired Pneumonia - ID consulted, Dr. Tucker, will follow up with his recommendations. - Vancomycin 1 gm to be administered after each dialysis session - Merropenem 1 gm q8h re-ordered today 3) ESRD - HD on Saturday, Saturday, Saturday -Nephrovite is being held - Continue to monitor electrolytes 4) Hypertension - Hydralazine 25 mg q8h 5) IDDM: Patient in now tolerating PO intake. - Endocrinology consult appreciated, Dr. Magana. - Glipizide 5 mg given before meals - Insulins are currently being held; will continue to monitor Fingerstick BGs 6) DVT/GI prophylaxis: Protonix 40 mg and Heparin 5,000 U SC <Janes Contreras - Last Filed: 08/20/17 14:32> Objective - Vital Signs/Intake and Output Vital Signs (last 24 hours): Temp Pulse Resp BP Pulse Ox 98.3 F 83 17 179/101 H 99 08/20/17 12:00 08/20/17 12:00 08/20/17 12:00 08/20/17 12:00 08/20/17 06:00 Intake and Output: 08/20/17 08/20/17 06:59 18:59 Intake Total 1450 1100 Output Total 1 Balance 1449 1100 - Medications Medications: Current Medications Glipizide (Glucotrol) 5 mg PO ACBD [facility] Last Admin: 08/20/17 09:00 Dose: 5 mg Heparin Sodium (Porcine) (Heparin) 5,000 units SC Q12 [facility] PRN Reason: Protocol Last Admin: 08/20/17 09:00 Dose: 5,000 units Hydralazine HCl (Apresoline) 25 mg PO Q8H [facility] Last Admin: 08/20/17 11:56 Dose: 25 mg Acetaminophen (Ofirmev) 1,000 mg in 100 mls @ 400 mls/hr IVPB Q6H PRN PRN Reason: Temperature Stop: 08/21/17 03:37 Last Admin: 08/19/17 03:44 Dose: 400 mls/hr Meropenem 1 gm/ Dextrose 100 mls @ 100 mls/hr IVPB Q8 [facility] PRN Reason: Protocol Stop: 08/20/17 22:59 Insulin Detemir (Levemir) 8 unit SC HS [facility] Last Admin: 08/19/17 21:42 Dose: Not Given Insulin Human Regular (Humulin R Low) 0 units SC ACHS [facility] PRN Reason: Protocol Last Admin: 08/20/17 12:09 Dose: Not Given Pantoprazole Sodium (Protonix Inj) 40 mg IVP DAILY [facility] Last Admin: 08/20/17 09:00 Dose: 40 mg Vitamin B Complex/Vit C/Folic Acid (Nephro-Manju) 1 tab PO 0800 [facility] - Labs Labs: 08/19/17 09:00 PT 12.9 SECONDS (9.4-12.5) H 08/18/17 23:00 INR 1.18 (0.93-1.08) H 08/18/17 23:00 APTT 33.6 Seconds (25.1-36.5) 08/18/17 23:00 Attending/Attestation - Attestation I have personally seen and examined this patient.: Yes I have fully participated in the care of the patient.: Yes I have reviewed all pertinent clinical information, including history, physical exam and plan: Yes Notes (Text): 08/20/17 14:22 47 year old female with past medical history of ESRD on HD, diabetes, and hypertension who presented with altered mental status likely multifactorial due to hypertensive emergency, pneumonia and hyperosmolar hyperglycemic state. CT head and MRI brain were reviewed. Neurology evaluation was appreciated. She was seen by psychiatrist this morning as well. Her mental status has improved. She is being followed by endocrinology for diabetes. She is on levemir and glucotrol. She is on iv antibiotics as per ID for pneumonia. Continue with HD for ESRD as per nephrology. She is on hydralazine for hypertension. Janes Contreras MD Hospitalist.
[2017-08-20] MEDS ORDERED: Meropenem 1 GM in Dextrose 5% In Water 100 ML IVPB SCH (14:00)
--- NOTE | 2017-08-20 17:10 | CP.PCM.PN ---
Subjective - Date & Time of Evaluation Date of Evaluation: 08/20/17 Time of Evaluation: 10:00 - Subjective Subjective: Infectious Disease Follow Up: August 20, 2017 47 yo female with extensive past medical history that includes IDDM type 2, ESRD on HD (T/R/S), HTN, osteomyelitis, HLD who was brought to the ER by EMS, called by her boyfriend for altered mental status and lethargy. Patient was lethargic, further history obtained by ICU team from her daughter who was at bedside. Patient had reportedly recently (about 1 week ago) been admitted to [facility] where she was being treated for pneumonia, and was ultimately discharged with a PO course of antibiotics. According to the daughter, patient was not taking anything for the pneumonia after leaving the hospital, and continued to have a cough productive of green sputum, as well as fever and malaise. She was also not taking any of her other medications for the past 2-3 days, as she has been staying at her friend's home where she doesn't have access to them. Daughter does think she went to dialysis as scheduled on Saturday, but cannot confirm with certainty. Further ROS and HPI limited by patient's mental status. Patient states that she did go to HD on Saturday. The patient had hyperglycemia and hypertensive urgency on admission here. She is more awake and alert now. She still complains of garbled speech. Otherwise communicates fairly well. Spoke with patient's daughter. Objective - Vital Signs/Intake and Output Vital Signs (last 24 hours): Temp Pulse Resp BP Pulse Ox 98.3 F 81 17 179/101 H 99 08/20/17 12:00 08/20/17 14:00 08/20/17 12:00 08/20/17 12:00 08/20/17 06:00 Intake and Output: 08/20/17 08/20/17 06:59 18:59 Intake Total 1450 1100 Output Total 1 Balance 1449 1100 - Medications Medications: Current Medications Glipizide (Glucotrol) 5 mg PO ACBD [facility] Last Admin: 08/20/17 16:43 Dose: 5 mg Heparin Sodium (Porcine) (Heparin) 5,000 units SC Q12 [facility] PRN Reason: Protocol Last Admin: 08/20/17 09:00 Dose: 5,000 units Hydralazine HCl (Apresoline) 25 mg PO Q8H [facility] Last Admin: 08/20/17 11:56 Dose: 25 mg Acetaminophen (Ofirmev) 1,000 mg in 100 mls @ 400 mls/hr IVPB Q6H PRN PRN Reason: Temperature Stop: 08/21/17 03:37 Last Admin: 08/19/17 03:44 Dose: 400 mls/hr Meropenem 1 gm/ Dextrose 100 mls @ 100 mls/hr IVPB Q8 [facility] PRN Reason: Protocol Stop: 08/20/17 22:59 Last Admin: 08/20/17 14:57 Dose: 100 mls/hr Insulin Detemir (Levemir) 8 unit SC HS [facility] Last Admin: 08/19/17 21:42 Dose: Not Given Insulin Human Regular (Humulin R Low) 0 units SC ACHS [facility] PRN Reason: Protocol Last Admin: 08/20/17 16:43 Dose: 4 units Pantoprazole Sodium (Protonix Inj) 40 mg IVP DAILY [facility] Last Admin: 08/20/17 09:00 Dose: 40 mg Vitamin B Complex/Vit C/Folic Acid (Nephro-Manju) 1 tab PO 0800 [facility] - Labs Labs: 08/19/17 09:00 PT 12.9 SECONDS (9.4-12.5) H 08/18/17 23:00 INR 1.18 (0.93-1.08) H 08/18/17 23:00 APTT 33.6 Seconds (25.1-36.5) 08/18/17 23:00 - Constitutional Appears: Non-toxic, No Acute Distress, Chronically Ill - Head Exam Head Exam: ATRAUMATIC, NORMOCEPHALIC - Eye Exam Eye Exam: EOMI, PERRL Pupil Exam: NORMAL ACCOMODATION, PERRL - ENT Exam ENT Exam: Mucous Membranes Moist, Normal External Ear Exam, TM's Normal Bilaterally - Neck Exam Neck Exam: Full ROM, Normal Inspection - Respiratory Exam Respiratory Exam: Decreased Breath Sounds, NORMAL BREATHING PATTERN. absent: Rales, Rhonchi, Wheezes - Cardiovascular Exam Cardiovascular Exam: REGULAR RHYTHM, RRR, +S1, +S2 - GI/Abdominal Exam GI & Abdominal Exam: Soft, Normal Bowel Sounds. absent: Distended, Tenderness - Extremities Exam Extremities Exam: Full ROM, Normal Inspection - Neurological Exam Neurological Exam: Alert, Awake, CN II-XII Intact, Oriented x3 - Psychiatric Exam Psychiatric exam: Normal Affect, Normal Mood - Skin Skin Exam: Intact, Normal Color Assessment and Plan - Assessment and Plan (Free Text) Assessment: 47 yo female with AMS on presentation to [facility] [place]. Recently at [facility]. The patient Chest X-ray with evidence of CHF. MRI of brain done. The patient with no leukocytosis. Fevers up to 104 F. On Meropenem IV for now. Awaiting cultures. Will check records at [facility]. On HD for her ESRD. Supportive care. Vancomycin dosing based on levels. Consider deescalating meropenem to cefepime or rocephin at this time. Thank you for allowing me to participate in the care of the patient, we will follow with you.
--- NOTE | 2017-08-20 18:04 | CP.PCM.PN ---
Subjective - Date & Time of Evaluation Date of Evaluation: 08/20/17 Time of Evaluation: 18:03 - Subjective Subjective: renal progress note no events overngiht PE:vss lying in bed heent normal op moist s1s2 present no resp distress abd soft skin normal ao times 3 no edema PLAN esrd/dm/HONK/HTN emergency/sepsis syndrome/AMS/anemia/sec hyperpth hd usual opt schedule is tts, will do mwf while inpatient due to rylee jackson reviewed anemia stable monitor phos levels continue current bp meds dm: per primary care please call us at [phone] if any qs Objective - Vital Signs/Intake and Output Vital Signs (last 24 hours): Temp Pulse Resp BP Pulse Ox 98.3 F 84 17 154/80 H 99 08/20/17 12:00 08/20/17 17:38 08/20/17 12:00 08/20/17 17:38 08/20/17 06:00 Intake and Output: 08/20/17 08/20/17 06:59 18:59 Intake Total 1450 1100 Output Total 1 Balance 1449 1100 - Medications Medications: Current Medications Glipizide (Glucotrol) 5 mg PO ACBD [facility] Last Admin: 08/20/17 16:43 Dose: 5 mg Heparin Sodium (Porcine) (Heparin) 5,000 units SC Q12 [facility] PRN Reason: Protocol Last Admin: 08/20/17 09:00 Dose: 5,000 units Hydralazine HCl (Apresoline) 25 mg PO Q8H [facility] Last Admin: 08/20/17 17:38 Dose: 25 mg Acetaminophen (Ofirmev) 1,000 mg in 100 mls @ 400 mls/hr IVPB Q6H PRN PRN Reason: Temperature Stop: 08/21/17 03:37 Last Admin: 08/19/17 03:44 Dose: 400 mls/hr Cefepime HCl (Maxipime 1gm) 1 gm in 100 mls @ 100 mls/hr IVPB Q12 [facility] PRN Reason: Protocol Insulin Detemir (Levemir) 8 unit SC HS [facility] Last Admin: 08/19/17 21:42 Dose: Not Given Insulin Human Regular (Humulin R Low) 0 units SC ACHS [facility] PRN Reason: Protocol Last Admin: 08/20/17 16:43 Dose: 4 units Ondansetron HCl (Zofran Inj) 4 mg IVP Q6H PRN PRN Reason: Nausea/Vomiting Pantoprazole Sodium (Protonix Inj) 40 mg IVP DAILY [facility] Last Admin: 08/20/17 09:00 Dose: 40 mg Vitamin B Complex/Vit C/Folic Acid (Nephro-Manju) 1 tab PO 0800 [facility] - Labs Labs: 08/19/17 09:00 PT 12.9 SECONDS (9.4-12.5) H 08/18/17 23:00 INR 1.18 (0.93-1.08) H 08/18/17 23:00 APTT 33.6 Seconds (25.1-36.5) 08/18/17 23:00
--- NOTE | 2017-08-20 19:55 | PN ---
DATE: ENDOCRINOLOGY FOLLOWUP NOTE LOCATION: In room 276. SUBJECTIVE: This is a 47-year-old female with recent uncontrolled type 2 insulin requiring diabetes now being followed closely for metabolic management. Her glycemic levels are fluctuating, but much improved at this time and the latest glucose levels have ranged from 102 to 227 mg/dL. Her latest chemistry showed a BUN of 45, sodium 145, potassium 3.6, chloride 102, CO2 of 29, glucose 63, and creatinine 7.1. So, at this time, we will continue to modify basal and bolus insulin regimen as given with Levemir given as 8 units subcutaneous at bedtime daily . We will continue the glipizide given as 5 mg p.o. b.i.d. before meals . We will titrate incrementally as indicated to optimize metabolic control. We will continue the low-dose correction scale using Humalog insulin as given. We will followup with you. Sachi Magana MD
--- NOTE | 2017-08-20 22:10 | CON ---
HISTORY OF PRESENT ILLNESS: Shortly, the patient is a 47-year-old -Iranian female. The patient was admitted on the medical side for evaluation of change in mental status. The patient has multiple medical issues, diabetes type 2, end-stage renal disease, on hemodialysis, hypertension. The patient also had recent pneumonia about a week ago where she was admitted to [facility]. Psych consult was called for evaluation of change in mental status. The patient was seen and examined today, discussed with the medical team as well as nursing staff. As per medical team, the patient had episodes of hallucinations and laughing inappropriately, but there was no agitation or aggression. This typewriter operator automatic spoke to the patient. The patient presented to be more alert. The patient knows that she is in the hospital, but she does not know what hospital she is in. The patient is aware of the date, but the patient is not aware of the circumstances of her admission on the medical side. The patient obviously has difficulties to find the right words and whenever she is not able to do so, she is smiling inappropriately. Besides that, the patient denied being depressed. The patient denied thoughts of harming herself or others. The patient denied intent or plan of killing herself. The patient denied being admitted to the Psychiatric Inpatient Unit in the past, denied suicidal attempts in the past. The patient reported that in 2009, her son was killed in a motor vehicle accident, he was 16-year-old. The patient reported that she lives with her daughter and daughter is supportive. This typewriter operator automatic reviewed the vital signs, seem to be within normal limits, temperature 98, pulse 73, blood pressure 134/100, respiration 18, oxygen saturation is 99%. MEDICATIONS: Reviewed. Glipizide, acetaminophen, heparin, hydralazine, Levemir, Humulin, Protonix, vitamin B complex. DIAGNOSTIC STUDIES: Labs were reviewed. This typewriter operator automatic reviewed testings. Brain MRI was done yesterday. There are periventricular foci of FLAIR signal intensity with involvement of bilateral basal ganglia. There is no restricted diffusion with the brain to suggest acute ischemic change. There is mild focal atrophy. Abdomen ultrasound suggestive of medical renal disease, small ascites, . Chest x-ray also was done on , CHF, left basilar airspace disease. MENTAL STATUS EXAMINATION: The patient presented to be alert. The patient seems to be oriented to time and place. The patient is not aware of the circumstances of her admission to the medical side. Intermittent eye contact. Mood described as "I feel fine." Affect was inappropriate at times because the patient had difficulties to find the right words and smiling inappropriately. Speech was underproductive, low volume, monotonic. Thought process seems to be concrete. Thought content, the patient denied visual, auditory, tactile hallucinations. Denied paranoid ideation. The patient denied thoughts of harming herself or others. The patient denied intent or plan. Insight and judgment are improving. Impulses are well controlled. IMPRESSION: Change in mental status, most likely related to the medical issues and delirium stage which seems to be improving. Infectious Disease as well as Neurology team are involved into the patent's care. Based on presentation, the patient is improving. The patient posed no imminent danger to self or others. The patient is compliant with medications. There is no aggression or agitation. This typewriter operator automatic truly believed after medical stabilization, the patient mental status also would be improving. Case was discussed with Dr. Contreras as well as medical imaging director. Should you have any questions, give me a call back. This typewriter operator automatic will sign off. Thank you very much for letting me participate in the care of your patient. Flori Tafoya MD
[2017-08-20] MEDS: Cefepime 1gm in NS 100ml 1 GM/100 ML BAG IVPB SCH (22:14)
[2017-08-20] MEDS: Insulin Detemir 100 units/ml Vial (Levemir) SC SCH (22:15)
[2017-08-21] MEDS: Insulin Reg-LOW-Coverage SC SCH ×4 (08:27→22:27)
[2017-08-21 08:59] LABS: BASO # 0.04 K/mm3 (0.0-2.0); BASO % 0.7 % (0.0-3.0); EOS # 0.2 (0.0-0.7); EOS % 2.7 % (1.5-5.0); GRAN # 3.35 (1.4-6.5); GRAN % 56.2 % (50.0-68.0); HEMATOCRIT 34.2 % (36.0-48.0); LYMPH # 1.7 (1.2-3.4); LYMPH % 28.5 % (22.0-35.0); MEAN CELL VOLUME 96.6 fl (80.0-105.0); MEAN CORPUSCULAR HEMOGLOBIN 31.4 pg (25.0-35.0); MEAN CORPUSCULAR HGB CONC 32.5 g/dl (31.0-37.0); MEAN PLATELET VOLUME 11.7 fl (7.0-11.0); MONO # 0.7 (0.1-0.6); MONO % 11.9 % (1.0-6.0); RED CELL DISTRIBUTION WIDTH 16.5 % (11.5-14.5)
[2017-08-21] MEDS ORDERED: Vancomycin 1gm in NS 250ml 1 GM/250 ML BAG IVPB ONE (09:21)
[2017-08-21 09:22] LABS: ALB/GLOB RATIO 1.1 (1.1-1.8); BILIRUBIN,TOTAL 0.7 mg/dL (0.2-1.3); CALCIUM 8.8 mg/dL (8.4-10.5); POTASSIUM 4.4 mmol/L (3.6-5.0); TOTAL PROTEIN 6.1 g/dL (5.8-8.3)
--- NOTE | 2017-08-21 13:02 | CP.PCM.PN ---
<Carlos Pro - Last Filed: 08/21/17 13:46> Subjective - Date & Time of Evaluation Date of Evaluation: 08/21/17 Time of Evaluation: 07:10 - Subjective Subjective: Carlos Pro DO, PGY-1, Hospitalist Service: Dr. Contreras Patient seen and examined at bedside. Patient able to speak clearly, denies hallucinating. Patient denies any chest pain, abdominal pain, cough, or sputum production. Patient does complain of generalized malaise. Objective - Vital Signs/Intake and Output Vital Signs (last 24 hours): Temp Pulse Resp BP Pulse Ox 98.3 F 77 20 153/86 H 94 L 08/21/17 06:00 08/21/17 10:00 08/21/17 06:00 08/21/17 06:00 08/21/17 06:00 - Medications Medications: Current Medications Heparin Sodium (Porcine) (Heparin) 5,000 units SC Q12 [facility] PRN Reason: Protocol Last Admin: 08/20/17 22:15 Dose: 5,000 units Hydralazine HCl (Apresoline) 25 mg PO Q8H [facility] Last Admin: 08/21/17 01:40 Dose: 25 mg Cefepime HCl (Maxipime 1gm) 1 gm in 100 mls @ 100 mls/hr IVPB Q12 [facility] PRN Reason: Protocol Last Admin: 08/20/17 22:14 Dose: 100 mls/hr Insulin Detemir (Levemir) 12 unit SC HS [facility] Insulin Human Regular (Humulin R Low) 0 units SC ACHS [facility] PRN Reason: Protocol Last Admin: 08/21/17 08:27 Dose: Not Given Ondansetron HCl (Zofran Inj) 4 mg IVP Q6H PRN PRN Reason: Nausea/Vomiting Last Admin: 08/20/17 18:35 Dose: 4 mg Pantoprazole Sodium (Protonix Inj) 40 mg IVP DAILY [facility] Last Admin: 08/20/17 09:00 Dose: 40 mg Repaglinide (Prandin) 2 mg PO AC [facility] Last Admin: 08/21/17 08:48 Dose: Not Given Vitamin B Complex/Vit C/Folic Acid (Nephro-Manju) 1 tab PO 0800 [facility] - Labs Labs: 08/21/17 08:50 08/21/17 08:50 PT 12.9 SECONDS (9.4-12.5) H 08/18/17 23:00 INR 1.18 (0.93-1.08) H 08/18/17 23:00 APTT 33.6 Seconds (25.1-36.5) 08/18/17 23:00 - Constitutional Appears: Well, Non-toxic - Head Exam Head Exam: ATRAUMATIC, NORMOCEPHALIC - Eye Exam Eye Exam: EOMI, Normal appearance, PERRL - ENT Exam ENT Exam: Mucous Membranes Moist, Normal Oropharynx - Neck Exam Neck Exam: Normal Inspection - Respiratory Exam Respiratory Exam: Clear to Ausculation Bilateral, NORMAL BREATHING PATTERN. absent: Rales - Cardiovascular Exam Cardiovascular Exam: RRR, +S1, +S2 - GI/Abdominal Exam GI & Abdominal Exam: Soft, Normal Bowel Sounds. absent: Distended, Guarding - Extremities Exam Extremities Exam: Full ROM, Normal Capillary Refill, Normal Inspection - Back Exam Back Exam: NORMAL INSPECTION. absent: CVA tenderness (L), CVA tenderness (R) - Neurological Exam Neurological Exam: Alert, Awake, CN II-XII Intact, Oriented x3 - Psychiatric Exam Additional comments: patient demonstrates normal mood and affect - Skin Skin Exam: Dry, Intact, Normal Color, Warm Assessment and Plan - Assessment and Plan (Free Text) Assessment: 47 yo F with PMH of IDDM type 2, ESRD on HD three times a week, HTN, osteomyelitis, HLD who was brought to the ED by EMS for altered mental status and lethargy. Active treatment for altered mental status secondary to hypertensive emergency, sepsis secondary to hospital-acquired pneumonia, hyperosmolar hyperglycemic state. Plan: 1) Altered Mental Status, resolved, and will likely improve as patient's clinical picture improves. - Patient's mental status is much improved. Patient is not exhibiting as much word-finding difficulty; oriented to person, place, time. - MRI of the brain reveals no ischemic changes, Neurology consult acknowledged. - Psychiatry consult appreciated 2)Hospital Acquired Pneumonia: patient afebrile without leukocytosis - ID consulted, Dr. Tucker, will follow up with his recommendations - Vancomycin 1 gm to be administered after each dialysis session will need to specify this order and check for understanding with staff. - Merropenem to be administered at the discretion of Infectious Disease. 3) ESRD - HD on Saturday, Saturday, Saturday - Cr 7.5 to 5.9 - Defer treatment to Dr. Braynt and the nephrology team. - Continue to monitor electrolytes 4) Hypertension - Hydralazine 25 mg q8h - Amlodipine 5 mg PO daily, added 5) IDDM: Patient in now tolerating PO intake. - Endocrinology consult appreciated, Dr. Magana. - Will defer glycemic control to endocrinology. - Insulins are currently being held; will continue to monitor Fingerstick BGs 6) DVT/GI prophylaxis: Protonix 40 mg and Heparin 5,000 U SC <Janes Contreras - Last Filed: 08/21/17 14:03> Objective - Vital Signs/Intake and Output Vital Signs (last 24 hours): Temp Pulse Resp BP Pulse Ox 98.3 F 83 20 184/93 H 94 L 08/21/17 06:00 08/21/17 13:23 08/21/17 06:00 08/21/17 13:23 08/21/17 06:00 - Medications Medications: Current Medications Amlodipine Besylate (Norvasc) 5 mg PO DAILY [facility] Heparin Sodium (Porcine) (Heparin) 5,000 units SC Q12 [facility] PRN Reason: Protocol Last Admin: 08/21/17 13:24 Dose: 5,000 units Hydralazine HCl (Apresoline) 25 mg PO Q8H [facility] Last Admin: 08/21/17 13:23 Dose: 25 mg Cefepime HCl (Maxipime 1gm) 1 gm in 100 mls @ 100 mls/hr IVPB Q12 [facility] PRN Reason: Protocol Last Admin: 08/21/17 13:25 Dose: 100 mls/hr Insulin Detemir (Levemir) 12 unit SC HS [facility] Insulin Human Regular (Humulin R Low) 0 units SC ACHS [facility] PRN Reason: Protocol Last Admin: 08/21/17 13:09 Dose: Not Given Ondansetron HCl (Zofran Inj) 4 mg IVP Q6H PRN PRN Reason: Nausea/Vomiting Last Admin: 08/20/17 18:35 Dose: 4 mg Pantoprazole Sodium (Protonix Inj) 40 mg IVP DAILY [facility] Last Admin: 08/21/17 13:24 Dose: 40 mg Repaglinide (Prandin) 2 mg PO AC [facility] Last Admin: 08/21/17 13:11 Dose: Not Given Vitamin B Complex/Vit C/Folic Acid (Nephro-Manju) 1 tab PO 0800 [facility] Last Admin: 08/21/17 13:24 Dose: 1 tab - Labs Labs: 08/21/17 08:50 08/21/17 08:50 PT 12.9 SECONDS (9.4-12.5) H 08/18/17 23:00 INR 1.18 (0.93-1.08) H 08/18/17 23:00 APTT 33.6 Seconds (25.1-36.5) 08/18/17 23:00 Attending/Attestation - Attestation I have personally seen and examined this patient.: Yes I have fully participated in the care of the patient.: Yes I have reviewed all pertinent clinical information, including history, physical exam and plan: Yes Notes (Text): 08/21/17 14:00 47 year old female with past medical history of ESRD on HD, diabetes, and hypertension who presented with altered mental status likely multifactorial due to hypertensive emergency, pneumonia and hyperosmolar hyperglycemic state. CT head and MRI brain were reviewed. Neurology and psychiatry evaluation were appreciated. Her mental status has improved to baseline. She is being followed by endocrinology for diabetes. She is on levemir and prandin. She is on hydralazine for hypertension and norvasc 5 mg is added today as well. Continue with iv antibiotics as per ID for pneumonia. Continue with HD for ESRD as per nephrology. PT evaluation is requested. Janes Contreras MD Hospitalist.
[2017-08-21] MEDS: Multivitamin Vitamin B Complex (Nephro-Vite) Tab PO SCH (13:24)
[2017-08-21] MEDS: Cefepime 1gm in NS 100ml 1 GM/100 ML BAG IVPB SCH ×2 (13:25→22:12)
--- NOTE | 2017-08-21 15:24 | CP.PCM.PN ---
Subjective - Date & Time of Evaluation Date of Evaluation: 08/21/17 Time of Evaluation: 15:22 - Subjective Subjective: Follow up Nephrology Consultation: Assessment: Stable Altered mental status, Hyperosmolar non-ketotic hyperglycemic state, HTN emergency, lactic acidosis, Sepsis, Hypokalemia Diabetic chronic Kidney Disease (E11.22) Hypertensive Chronic Kidney Disease (I12.0) End stage renal disease (N18.6) dependence on hemodialysis (Z99.2) (TTS) via AVG Anemia (D64.9), Hyperphosphatemia (E83.39), Secondary Hyperparathyroidism (E21.1 ), HTN (I12.0) Plan: Will plan for HD today as ordered (due to change in outpt HD schedule this week due to Thanksgiving on ). Continue with Nephrovite 1 tab/day. Hb okay, defer HAILEY for now last phos level 3.5 okay BP control with meds as ordered. Patient on RAAS lópez as lisinopril at home, now Glycemic control (metformin contraindicated due to ESRD status), Dialysis consistent diet Further work up/management as per primary team Dose meds/antibiotics (if needed) for ESRD status. Avoid fleets enema/magnesium based laxatives. Thanks for allowing me to participate in care of your patient. Will follow patient with you. Please call if any Qs. Dr Elton Bryant Office: [phone] Chief Complaint;fever HPI: Pt is a 47 y/o with hx of ESRD on hemodialysis (TTS) via Rt AVG, last dialysis sat, chronic anemia, hyperphosphatemia, secondary hyperparathyroidism, Diabetes Mellitus, hypertension presented with complaints of fever and confusion , change in mental status, found to have sepsis, hyperosmolar state, HTN emergency and admission to ICU as required insulin drip and IV antihypertensives. Feels better now. Denies chest pain, palpitation, shortness of breath, leg swelling. improved cough and sore throat [place] [facility] [place] approx 7-10 days ago. Physical Examination: seen during HD General Appearance: Comfortable, in no acute respiratory distress, co-operative . Vitals reviewed and noted as below Head; Atraumatic, normocephalic ENT: no ulcers no thrush. Tongue is midline. Oropharynx: no rash but ? ulcer on Rt tonsillar area. EYES: Pupils are equal, round and reactive to light accommodation. Eye muscles and extraocular movement intact. Sclera is anicteric. Neck; supple no lymphadenopathy, no thyromegaly or bruit Lungs: Normal respiratory rate/effort. Breath sounds bilateral equal and b/l basal crackles + Heart: Normal rate. s1s2 normal. No rub or gallop. Extremities: no edema. No varicose veins Neurological: Patient is alert, awake and oriented to person, place and time. No focal deficit. Strength bilateral appropriate and equal. Skin: Warm and dry. Normal turgor. No rash. Palpitation: Normal elasticity for age Abdomen: Abdomen is soft. Bowel sounds +. There is no abdominal tenderness, no guarding/rigidity or organomegaly Psych: normal insight and normal affect/mood MSK: no joint tenderness or swelling. Digits and nails normal, no deformity : kidney or bladder not palpable Access: Rt AVG with thrill and bruit Labs/imaging reviewed. Past medical history, past surgical history, family history, social history, allergy reviewed and noted as below Family Hx: no hx of CKD. Non contributory Objective - Vital Signs/Intake and Output Vital Signs (last 24 hours): Temp Pulse Resp BP Pulse Ox 98.3 F 83 20 184/93 H 94 L 08/21/17 06:00 08/21/17 14:12 08/21/17 06:00 08/21/17 14:12 08/21/17 06:00 - Medications Medications: Current Medications Amlodipine Besylate (Norvasc) 5 mg PO DAILY [facility] Last Admin: 08/21/17 14:12 Dose: 5 mg Heparin Sodium (Porcine) (Heparin) 5,000 units SC Q12 [facility] PRN Reason: Protocol Last Admin: 08/21/17 13:24 Dose: 5,000 units Hydralazine HCl (Apresoline) 25 mg PO Q8H [facility] Last Admin: 08/21/17 13:23 Dose: 25 mg Cefepime HCl (Maxipime 1gm) 1 gm in 100 mls @ 100 mls/hr IVPB Q12 [facility] PRN Reason: Protocol Last Admin: 08/21/17 13:25 Dose: 100 mls/hr Insulin Detemir (Levemir) 12 unit SC HS [facility] Insulin Human Regular (Humulin R Low) 0 units SC ACHS [facility] PRN Reason: Protocol Last Admin: 08/21/17 13:09 Dose: Not Given Losartan Potassium (Cozaar) 50 mg PO DAILY [facility] Ondansetron HCl (Zofran Inj) 4 mg IVP Q6H PRN PRN Reason: Nausea/Vomiting Last Admin: 08/20/17 18:35 Dose: 4 mg Pantoprazole Sodium (Protonix Inj) 40 mg IVP DAILY [facility] Last Admin: 08/21/17 13:24 Dose: 40 mg Repaglinide (Prandin) 2 mg PO AC [facility] Last Admin: 08/21/17 13:11 Dose: Not Given Vitamin B Complex/Vit C/Folic Acid (Nephro-Manju) 1 tab PO 0800 [facility] Last Admin: 08/21/17 13:24 Dose: 1 tab - Labs Labs: 08/21/17 08:50 08/21/17 08:50 PT 12.9 SECONDS (9.4-12.5) H 08/18/17 23:00 INR 1.18 (0.93-1.08) H 08/18/17 23:00 APTT 33.6 Seconds (25.1-36.5) 08/18/17 23:00
--- NOTE | 2017-08-21 19:10 | CP.PCM.PN ---
Subjective - Date & Time of Evaluation Date of Evaluation: 08/21/17 Time of Evaluation: 17:00 - Subjective Subjective: Infectious Disease Follow Up: August 21, 2017 47 yo female with extensive past medical history that includes IDDM type 2, ESRD on HD (T/R/S), HTN, osteomyelitis, HLD who was brought to the ER by EMS, called by her boyfriend for altered mental status and lethargy. Patient was lethargic, further history obtained by ICU team from her daughter who was at bedside. Patient had reportedly recently (about 1 week ago) been admitted to [facility] [place] where she was being treated for pneumonia, and was ultimately discharged with a PO course of antibiotics. According to the daughter, patient was not taking anything for the pneumonia after leaving the hospital, and continued to have a cough productive of green sputum, as well as fever and malaise. She was also not taking any of her other medications for the past 2-3 days, as she has been staying at her friend's home where she doesn't have access to them. Daughter does think she went to dialysis as scheduled on Saturday, but cannot confirm with certainty. Further ROS and HPI limited by patient's mental status. Patient states that she did go to HD on Saturday. The patient had hyperglycemia and hypertensive urgency on admission here. She is more awake and alert now. She still complains of garbled speech. Otherwise communicates fairly well. Spoke with patient's daughter. Objective - Vital Signs/Intake and Output Vital Signs (last 24 hours): Temp Pulse Resp BP Pulse Ox 98.4 F 94 H 20 184/95 H 94 L 08/21/17 18:00 08/21/17 18:27 08/21/17 18:00 08/21/17 18:27 08/21/17 06:00 - Medications Medications: Current Medications Amlodipine Besylate (Norvasc) 5 mg PO DAILY [facility] Last Admin: 08/21/17 14:12 Dose: 5 mg Heparin Sodium (Porcine) (Heparin) 5,000 units SC Q12 [facility] PRN Reason: Protocol Last Admin: 08/21/17 13:24 Dose: 5,000 units Hydralazine HCl (Apresoline) 25 mg PO Q8H [facility] Last Admin: 08/21/17 18:27 Dose: 25 mg Cefepime HCl (Maxipime 1gm) 1 gm in 100 mls @ 100 mls/hr IVPB Q12 [facility] PRN Reason: Protocol Last Admin: 08/21/17 13:25 Dose: 100 mls/hr Insulin Detemir (Levemir) 12 unit SC HS [facility] Insulin Human Regular (Humulin R Low) 0 units SC ACHS [facility] PRN Reason: Protocol Last Admin: 08/21/17 16:39 Dose: Not Given Lisinopril (Zestril) 40 mg PO DAILY [facility] Last Admin: 08/21/17 16:38 Dose: 40 mg Ondansetron HCl (Zofran Inj) 4 mg IVP Q6H [facility] PRN Reason: Nausea/Vomiting Last Admin: 08/20/17 18:35 Dose: 4 mg Pantoprazole Sodium (Protonix Inj) 40 mg IVP DAILY [facility] Last Admin: 08/21/17 13:24 Dose: 40 mg Repaglinide (Prandin) 2 mg PO AC [facility] Last Admin: 08/21/17 16:38 Dose: 2 mg Vitamin B Complex/Vit C/Folic Acid (Nephro-Manju) 1 tab PO 0800 [facility] Last Admin: 08/21/17 13:24 Dose: 1 tab - Labs Labs: 08/21/17 08:50 08/21/17 08:50 PT 12.9 SECONDS (9.4-12.5) H 08/18/17 23:00 INR 1.18 (0.93-1.08) H 08/18/17 23:00 APTT 33.6 Seconds (25.1-36.5) 08/18/17 23:00 - Constitutional Appears: Non-toxic, No Acute Distress, Chronically Ill - Head Exam Head Exam: ATRAUMATIC, NORMOCEPHALIC - Eye Exam Eye Exam: EOMI, PERRL Pupil Exam: NORMAL ACCOMODATION, PERRL - ENT Exam ENT Exam: Mucous Membranes Moist, Normal External Ear Exam, TM's Normal Bilaterally - Neck Exam Neck Exam: Full ROM, Normal Inspection - Respiratory Exam Respiratory Exam: Decreased Breath Sounds, NORMAL BREATHING PATTERN. absent: Rales, Rhonchi, Wheezes - Cardiovascular Exam Cardiovascular Exam: REGULAR RHYTHM, RRR, +S1, +S2 - GI/Abdominal Exam GI & Abdominal Exam: Soft, Normal Bowel Sounds. absent: Distended, Tenderness - Extremities Exam Extremities Exam: Full ROM, Normal Inspection - Neurological Exam Neurological Exam: Alert, Awake, CN II-XII Intact, Oriented x3 - Psychiatric Exam Psychiatric exam: Normal Affect, Normal Mood - Skin Skin Exam: Intact, Normal Color Assessment and Plan - Assessment and Plan (Free Text) Assessment: 47 yo female with AMS on presentation to [facility] [place]. Recently at [facility] [place]. The patient Chest X-ray with evidence of CHF. MRI of brain done. The patient with no leukocytosis. Fevers up to 104 F. On Meropenem IV for now. Awaiting cultures. Will check records at [facility] [place]. On HD for her ESRD. Supportive care. Vancomycin dosing based on levels. On Cefepime for antibiotic coverage now. No fevers today. Thank you for allowing me to participate in the care of the patient, we will follow with you.
[2017-08-21] MEDS ORDERED: Insulin Detemir 100 units/ml Vial (Levemir) SC SCH ×2 (22:00)
--- NOTE | 2017-08-21 23:45 | PN ---
DATE: FOLLOWUP NOTE In room 276. SUBJECTIVE: This is a 47-year-old female with recent uncontrolled type 2 insulin-requiring diabetes now being followed closely for metabolic management. Her oral intake continues to be quite to be quite variable and suboptimal as noted with hyperglycemic accelerations supervening today and glucose values ranging from 276-317 mg/dl. LABORATORY DATA: Her latest chemistry showed a BUN of 37, sodium 134, potassium 4.4, chloride 95, CO2 of 33, glucose 153 and creatinine 5.9. ASSESSMENT AND PLAN: So at this time, we will modify once again her basal insulin and increase the Levemir to 14 units subcu at bedtime daily to start tonight. We will also add Januvia given as 25 mg once daily in the morning as ordered. We will continue the low-dose correction scale using regular insulin as ordered. We will also continue the Prandin given as 2 mg p.o. t.i.d. before meals as ordered. We will titrate incrementally as indicated to optimize metabolic control. We will follow and advise accordingly. Sachi Magana MD
[2017-08-22 06:13] LABS: BASO # 0.03 K/mm3 (0.0-2.0); BASO % 0.6 % (0.0-3.0); EOS # 0.1 (0.0-0.7); EOS % 2.6 % (1.5-5.0); GRAN # 2.79 (1.4-6.5); GRAN % 55.5 % (50.0-68.0); HEMATOCRIT 37.8 % (36.0-48.0); LYMPH # 1.5 (1.2-3.4); MEAN CELL VOLUME 97.2 fl (80.0-105.0); MEAN CORPUSCULAR HEMOGLOBIN 30.6 pg (25.0-35.0); MEAN CORPUSCULAR HGB CONC 31.5 g/dl (31.0-37.0); MEAN PLATELET VOLUME 11.6 fl (7.0-11.0); MONO # 0.6 (0.1-0.6); MONO % 12.3 % (1.0-6.0); RED CELL DISTRIBUTION WIDTH 16.6 % (11.5-14.5)
[2017-08-22 07:16] LABS: BILIRUBIN,TOTAL 0.6 mg/dL (0.2-1.3); CALCIUM 8.7 mg/dL (8.4-10.5); POTASSIUM 4.3 mmol/L (3.6-5.0); TOTAL PROTEIN 6.3 g/dL (5.8-8.3)
[2017-08-22] MEDS: Multivitamin Vitamin B Complex (Nephro-Vite) Tab PO SCH (08:19)
[2017-08-22] MEDS: Insulin Reg-LOW-Coverage SC SCH ×3 (08:20→16:33)
[2017-08-22] MEDS: Cefepime 1gm in NS 100ml 1 GM/100 ML BAG IVPB SCH ×2 (09:20→22:04)
--- NOTE | 2017-08-22 12:12 | CP.PCM.PN ---
Subjective - Date & Time of Evaluation Date of Evaluation: 08/22/17 Time of Evaluation: 11:00 - Subjective Subjective: Infectious Disease Follow Up: August 22, 2017 47 yo female with extensive past medical history that includes IDDM type 2, ESRD on HD (T/R/S), HTN, osteomyelitis, HLD who was brought to the ER by EMS, called by her boyfriend for altered mental status and lethargy. Patient was lethargic, further history obtained by ICU team from her daughter who was at bedside. Patient had reportedly recently (about 1 week ago) [place] [facility] [place], and was ultimately discharged with a PO course of antibiotics. According to the daughter, patient was not taking anything for the pneumonia after leaving the hospital, and continued to have a cough productive of green sputum, as well as fever and malaise. She was also not taking any of her other medications for the past 2-3 days, as she has been staying at her friend's home where she doesn't have access to them. Daughter does think she went to dialysis as scheduled on Saturday, but cannot confirm with certainty. Further ROS and HPI limited by patient's mental status. Patient states that she did go to HD on Saturday. The patient had hyperglycemia and hypertensive urgency on admission here. She is more awake and alert now. Patient still complains of garbled speech. Otherwise communicates fairly well. Spoke with patient's daughter. Blood pressure remains elevated. Objective - Vital Signs/Intake and Output Vital Signs (last 24 hours): Temp Pulse Resp BP Pulse Ox 98.2 F 84 20 157/98 H 98 08/22/17 11:53 08/22/17 11:53 08/22/17 11:53 08/22/17 11:53 08/22/17 06:00 Intake and Output: 08/22/17 08/22/17 06:59 18:59 Intake Total 240 Balance 240 - Medications Medications: Current Medications Amlodipine Besylate (Norvasc) 5 mg PO DAILY [facility] Last Admin: 08/22/17 09:19 Dose: 5 mg Heparin Sodium (Porcine) (Heparin) 5,000 units SC Q12 [facility] PRN Reason: Protocol Last Admin: 08/22/17 09:20 Dose: 5,000 units Hydralazine HCl (Apresoline) 25 mg PO Q8H [facility] Last Admin: 08/22/17 09:34 Dose: 25 mg Cefepime HCl (Maxipime 1gm) 1 gm in 100 mls @ 100 mls/hr IVPB Q12 [facility] PRN Reason: Protocol Last Admin: 08/22/17 09:20 Dose: 100 mls/hr Insulin Detemir (Levemir) 16 unit SC HS [facility] Insulin Human Regular (Humulin R Low) 0 units SC ACHS [facility] PRN Reason: Protocol Last Admin: 08/22/17 11:42 Dose: Not Given Lisinopril (Zestril) 40 mg PO DAILY [facility] Last Admin: 08/22/17 09:19 Dose: 40 mg Ondansetron HCl (Zofran Inj) 4 mg IVP Q6H [facility] PRN Reason: Nausea/Vomiting Last Admin: 08/20/17 18:35 Dose: 4 mg Pantoprazole Sodium (Protonix Inj) 40 mg IVP DAILY [facility] Last Admin: 08/22/17 09:20 Dose: 40 mg Repaglinide (Prandin) 2 mg PO AC [facility] Last Admin: 08/22/17 11:46 Dose: 2 mg Sitagliptin Phosphate (Januvia) 25 mg PO DAILY [facility] Last Admin: 08/22/17 10:03 Dose: 25 mg Vitamin B Complex/Vit C/Folic Acid (Nephro-Manju) 1 tab PO 0800 [facility] Last Admin: 08/22/17 08:19 Dose: 1 tab - Labs Labs: 08/22/17 05:30 08/22/17 05:30 PT 12.9 SECONDS (9.4-12.5) H 08/18/17 23:00 INR 1.18 (0.93-1.08) H 08/18/17 23:00 APTT 33.6 Seconds (25.1-36.5) 08/18/17 23:00 - Constitutional Appears: Non-toxic, No Acute Distress, Chronically Ill - Head Exam Head Exam: ATRAUMATIC, NORMOCEPHALIC - Eye Exam Eye Exam: EOMI, PERRL Pupil Exam: NORMAL ACCOMODATION, PERRL - ENT Exam ENT Exam: Mucous Membranes Moist, Normal External Ear Exam, TM's Normal Bilaterally - Neck Exam Neck Exam: Full ROM, Normal Inspection - Respiratory Exam Respiratory Exam: Clear to Ausculation Bilateral, NORMAL BREATHING PATTERN. absent: Rales, Rhonchi, Wheezes - Cardiovascular Exam Cardiovascular Exam: REGULAR RHYTHM, RRR, +S1, +S2 - GI/Abdominal Exam GI & Abdominal Exam: Soft, Normal Bowel Sounds. absent: Distended, Tenderness - Extremities Exam Extremities Exam: Full ROM, Normal Inspection - Neurological Exam Neurological Exam: Alert, Awake, CN II-XII Intact, Oriented x3 - Psychiatric Exam Psychiatric exam: Normal Affect, Normal Mood - Skin Skin Exam: Intact, Normal Color Assessment and Plan - Assessment and Plan (Free Text) Assessment: 47 yo female with [place] [facility] [place] [facility] [place] patient Chest X-ray with evidence of CHF. MRI of brain done. The patient with no leukocytosis. Fevers up to 104 F. On Meropenem IV for now. Awaiting cultures. [place] [facility] [place] for her ESRD. Supportive care. Cultures negative to date. Deescalated meropenem to cefepime. Vancomycin dosing based on levels. On Cefepime for antibiotic coverage now. No fevers today. Appears to be clinically improving. Thank you for allowing me to participate in the care of the patient, we will follow with you.
--- NOTE | 2017-08-22 16:21 | CP.PCM.PN ---
Subjective - Date & Time of Evaluation Date of Evaluation: 08/22/17 Time of Evaluation: 16:19 - Subjective Subjective: Follow up Nephrology Consultation: Assessment: Stable Altered mental status, Hyperosmolar non-ketotic hyperglycemic state, HTN emergency, lactic acidosis, Sepsis, Hypokalemia Diabetic chronic Kidney Disease (E11.22) Hypertensive Chronic Kidney Disease (I12.0) End stage renal disease (N18.6) dependence on hemodialysis (Z99.2) (TTS) via AVG Anemia (D64.9), Hyperphosphatemia (E83.39), Secondary Hyperparathyroidism (E21.1 ), HTN (I12.0) Plan: Will plan for HD saturday as next session. no acute need today Continue with Nephrovite 1 tab/day. Hb okay, defer HAILEY for now last phos level 4.0 okay BP control with meds as ordered. Patient on RAAS lópez as lisinopril at home, resumed Glycemic control (metformin contraindicated due to ESRD status), Dialysis consistent diet Further work up/management as per primary team Dose meds/antibiotics (if needed) for ESRD status. Avoid fleets enema/magnesium based laxatives. Thanks for allowing me to participate in care of your patient. Will follow patient with you. Please call if any Qs. d/w team Dr Elton Bryant Office: [phone] Chief Complaint; none now HPI: Pt is a 47 y/o with hx of ESRD on hemodialysis (TTS) via Rt AVG, last dialysis sat, chronic anemia, hyperphosphatemia, secondary hyperparathyroidism, Diabetes Mellitus, hypertension presented with complaints of fever and confusion , change in mental status, found to have sepsis, hyperosmolar state, HTN emergency and admission to ICU as required insulin drip and IV antihypertensives. Feels better now. Denies chest pain, palpitation, shortness of breath, leg swelling. resolved cough and sore throat recent admission to [facility] for pneumonia and d/c home approx 7-10 days ago. Physical Examination: General Appearance: Comfortable, in no acute respiratory distress, co-operative . Vitals reviewed and noted as below Head; Atraumatic, normocephalic ENT: no ulcers no thrush. Tongue is midline. Oropharynx: no rash EYES: Pupils are equal, round and reactive to light accommodation. Eye muscles and extraocular movement intact. Sclera is anicteric. Neck; supple no lymphadenopathy, no thyromegaly or bruit Lungs: Normal respiratory rate/effort. Breath sounds bilateral equal and b/l clear Heart: Normal rate. s1s2 normal. No rub or gallop. Extremities: no edema. No varicose veins Neurological: Patient is alert, awake and oriented to person, place and time. No focal deficit. Strength bilateral appropriate and equal. Skin: Warm and dry. Normal turgor. No rash. Palpitation: Normal elasticity for age Abdomen: Abdomen is soft. Bowel sounds +. There is no abdominal tenderness, no guarding/rigidity or organomegaly Psych: normal insight and normal affect/mood MSK: no joint tenderness or swelling. Digits and nails normal, no deformity : kidney or bladder not palpable Access: Rt AVG with thrill and bruit Labs/imaging reviewed. Past medical history, past surgical history, family history, social history, allergy reviewed and noted as below Family Hx: no hx of CKD. Non contributory Objective - Vital Signs/Intake and Output Vital Signs (last 24 hours): Temp Pulse Resp BP Pulse Ox 98.2 F 84 20 157/98 H 98 08/22/17 11:53 08/22/17 11:53 08/22/17 11:53 08/22/17 11:53 08/22/17 06:00 Intake and Output: 08/22/17 08/22/17 06:59 18:59 Intake Total 240 240 Balance 240 240 - Medications Medications: Current Medications Amlodipine Besylate (Norvasc) 5 mg PO DAILY [facility] Last Admin: 08/22/17 09:19 Dose: 5 mg Heparin Sodium (Porcine) (Heparin) 5,000 units SC Q12 [facility] PRN Reason: Protocol Last Admin: 08/22/17 09:20 Dose: 5,000 units Hydralazine HCl (Apresoline) 25 mg PO Q8H [facility] Last Admin: 08/22/17 09:34 Dose: 25 mg Cefepime HCl (Maxipime 1gm) 1 gm in 100 mls @ 100 mls/hr IVPB Q12 [facility] PRN Reason: Protocol Last Admin: 08/22/17 09:20 Dose: 100 mls/hr Insulin Detemir (Levemir) 16 unit SC [facility] Insulin Human Regular (Humulin R Low) 0 units SC [facility] PRN Reason: Protocol Last Admin: 08/22/17 11:42 Dose: Not Given Lisinopril (Zestril) 40 mg PO DAILY [facility] Last Admin: 08/22/17 09:19 Dose: 40 mg Ondansetron HCl (Zofran Inj) 4 mg IVP Q6H PRN PRN Reason: Nausea/Vomiting Last Admin: 08/20/17 18:35 Dose: 4 mg Pantoprazole Sodium (Protonix Inj) 40 mg IVP DAILY [facility] Last Admin: 08/22/17 09:20 Dose: 40 mg Repaglinide (Prandin) 2 mg PO AC [facility] Last Admin: 08/22/17 11:46 Dose: 2 mg Sitagliptin Phosphate (Januvia) 25 mg PO DAILY [facility] Last Admin: 08/22/17 10:03 Dose: 25 mg Vitamin B Complex/Vit C/Folic Acid (Nephro-Manju) 1 tab PO 0800 [facility] Last Admin: 08/22/17 08:19 Dose: 1 tab - Labs Labs: 08/22/17 05:30 08/22/17 05:30 PT 12.9 SECONDS (9.4-12.5) H 08/18/17 23:00 INR 1.18 (0.93-1.08) H 08/18/17 23:00 APTT 33.6 Seconds (25.1-36.5) 08/18/17 23:00
--- NOTE | 2017-08-22 16:34 | PN ---
ENDO FOLLOWUP NOTE LOCATION: In room 276. SUBJECTIVE: This is a 47-year-old female with recent uncontrolled type 2 insulin-requiring diabetes, now being followed closely for metabolic management. Her glycemic levels are fluctuating but improved and the latest glucose levels today have ranged from 196-240 mg/dL. Her latest chemistries showed a BUN of 26, sodium 135, potassium 4.3, chloride 98, CO2 of 28, glucose 229 and creatinine 4.6. So, at this time, we will modify once again her basal insulin and increase the Levemir to 16 units subcu at bedtime daily to start tonight. We will continue the dual oral hypoglycemic drug therapy given 2 mg p.o. t.i.d. before meals and Januvia given as 25 mg once daily in the morning as ordered. We will continue the low-dose correction scale, using regular insulin as given. We will titrate incremental as indicated to optimize metabolic control. We will follow with you. Sachi Magana MD
--- NOTE | 2017-08-22 18:30 | CP.PCM.PN ---
<Carlos Pro - Last Filed: 08/22/17 18:27> Subjective - Date & Time of Evaluation Date of Evaluation: 08/22/17 Time of Evaluation: 18:27 - Subjective Subjective: Patient seen and examined at bedside. Patient denies CP/N/V/D. Patient does not wish to go home today. Objective - Vital Signs/Intake and Output Vital Signs (last 24 hours): Temp Pulse Resp BP Pulse Ox 98.2 F 96 H 20 180/92 H 98 08/22/17 11:53 08/22/17 18:18 08/22/17 11:53 08/22/17 18:18 08/22/17 06:00 Intake and Output: 08/22/17 08/22/17 06:59 18:59 Intake Total 240 240 Balance 240 240 - Medications Medications: Current Medications Amlodipine Besylate (Norvasc) 5 mg PO DAILY [facility] Last Admin: 08/22/17 09:19 Dose: 5 mg Heparin Sodium (Porcine) (Heparin) 5,000 units SC Q12 [facility] PRN Reason: Protocol Last Admin: 08/22/17 09:20 Dose: 5,000 units Hydralazine HCl (Apresoline) 25 mg PO Q8H [facility] Last Admin: 08/22/17 18:18 Dose: 25 mg Cefepime HCl (Maxipime 1gm) 1 gm in 100 mls @ 100 mls/hr IVPB Q12 [facility] PRN Reason: Protocol Last Admin: 08/22/17 09:20 Dose: 100 mls/hr Insulin Detemir (Levemir) 16 unit SC HS [facility] Insulin Human Regular (Humulin R Low) 0 units SC ACHS [facility] PRN Reason: Protocol Last Admin: 08/22/17 16:33 Dose: 4 units Lisinopril (Zestril) 40 mg PO DAILY [facility] Last Admin: 08/22/17 09:19 Dose: 40 mg Ondansetron HCl (Zofran Inj) 4 mg IVP Q6H PRN PRN Reason: Nausea/Vomiting Last Admin: 08/20/17 18:35 Dose: 4 mg Pantoprazole Sodium (Protonix Inj) 40 mg IVP DAILY [facility] Last Admin: 08/22/17 09:20 Dose: 40 mg Repaglinide (Prandin) 2 mg PO AC [facility] Last Admin: 08/22/17 16:35 Dose: 2 mg Sitagliptin Phosphate (Januvia) 25 mg PO DAILY [facility] Last Admin: 08/22/17 10:03 Dose: 25 mg Vitamin B Complex/Vit C/Folic Acid (Nephro-Manju) 1 tab PO 0800 [facility] Last Admin: 08/22/17 08:19 Dose: 1 tab - Labs Labs: 08/22/17 05:30 08/22/17 05:30 PT 12.9 SECONDS (9.4-12.5) H 08/18/17 23:00 INR 1.18 (0.93-1.08) H 08/18/17 23:00 APTT 33.6 Seconds (25.1-36.5) 08/18/17 23:00 - Constitutional Appears: Well, Non-toxic - Head Exam Head Exam: ATRAUMATIC - Eye Exam Eye Exam: EOMI, Normal appearance - ENT Exam ENT Exam: Mucous Membranes Moist, Normal Oropharynx - Neck Exam Neck Exam: Normal Inspection - Respiratory Exam Respiratory Exam: Clear to Ausculation Bilateral, NORMAL BREATHING PATTERN - Cardiovascular Exam Cardiovascular Exam: RRR, +S1, +S2 - GI/Abdominal Exam GI & Abdominal Exam: Soft, Normal Bowel Sounds - Extremities Exam Extremities Exam: Normal Capillary Refill, Normal Inspection - Back Exam Back Exam: NORMAL INSPECTION. absent: CVA tenderness (L), CVA tenderness (R) - Neurological Exam Neurological Exam: Alert, CN II-XII Intact, Oriented x3 - Psychiatric Exam Psychiatric exam: Normal Affect, Normal Mood - Skin Skin Exam: Dry, Intact, Normal Color, Warm Assessment and Plan - Assessment and Plan (Free Text) Assessment: 47 yo F with PMH of IDDM type 2, ESRD on HD three times a week, HTN, osteomyelitis, HLD who was brought to the ED by EMS for altered mental status and lethargy. Active treatment for altered mental status secondary to hypertensive emergency, sepsis secondary to hospital-acquired pneumonia, hyperosmolar hyperglycemic state. Plan: 1) Altered Mental Status, resolved, and will likely improve as patient's clinical picture improves. - Patient's mental status is much improved. Patient is not exhibiting as much word-finding difficulty; oriented to person, place, time. - MRI of the brain reveals no ischemic changes, Neurology consult acknowledged. - Psychiatry consult appreciated 2)Hospital Acquired Pneumonia: patient afebrile without leukocytosis - ID consulted, Dr. Tucker, will follow up with his recommendations - Vancomycin 1 gm to be administered after each dialysis session will need to specify this order and check for understanding with staff. - Merropenem to be administered at the discretion of Infectious Disease. 3) ESRD - HD on Saturday, Saturday, Saturday - Defer treatment to Dr. Bryant and the nephrology team. - Continue to monitor electrolytes 4) Hypertension - Hydralazine 25 mg q8h - Amlodipine 5 mg PO daily, added 5) IDDM: Patient in now tolerating PO intake. - Endocrinology consult appreciated, Dr. Magana. - Will defer glycemic control to endocrinology. - Insulins are currently being held; will continue to monitor Fingerstick BGs 6) DVT/GI prophylaxis: Protonix 40 mg and Heparin 5,000 U SC <Janes Contreras - Last Filed: 08/22/17 21:28> Objective - Vital Signs/Intake and Output Vital Signs (last 24 hours): Temp Pulse Resp BP Pulse Ox 99.3 F 96 H 20 180/92 H 98 08/22/17 18:00 08/22/17 18:18 08/22/17 18:00 08/22/17 18:18 08/22/17 06:00 Intake and Output: 08/22/17 08/23/17 18:59 06:59 Intake Total 240 Balance 240 - Medications Medications: Current Medications Amlodipine Besylate (Norvasc) 5 mg PO DAILY [facility] Last Admin: 08/22/17 09:19 Dose: 5 mg Heparin Sodium (Porcine) (Heparin) 5,000 units SC Q12 [facility] PRN Reason: Protocol Last Admin: 08/22/17 09:20 Dose: 5,000 units Hydralazine HCl (Apresoline) 25 mg PO Q8H [facility] Last Admin: 08/22/17 18:18 Dose: 25 mg Cefepime HCl (Maxipime 1gm) 1 gm in 100 mls @ 100 mls/hr IVPB Q12 [facility] PRN Reason: Protocol Last Admin: 08/22/17 09:20 Dose: 100 mls/hr Insulin Detemir (Levemir) 16 unit SC HS [facility] Insulin Human Regular (Humulin R Low) 0 units SC ACHS [facility] PRN Reason: Protocol Last Admin: 08/22/17 16:33 Dose: 4 units Lisinopril (Zestril) 40 mg PO DAILY [facility] Last Admin: 08/22/17 09:19 Dose: 40 mg Ondansetron HCl (Zofran Inj) 4 mg IVP Q6H PRN PRN Reason: Nausea/Vomiting Last Admin: 08/20/17 18:35 Dose: 4 mg Pantoprazole Sodium (Protonix Inj) 40 mg IVP DAILY [facility] Last Admin: 08/22/17 09:20 Dose: 40 mg Repaglinide (Prandin) 2 mg PO AC [facility] Last Admin: 08/22/17 16:35 Dose: 2 mg Sitagliptin Phosphate (Januvia) 25 mg PO DAILY [facility] Last Admin: 08/22/17 10:03 Dose: 25 mg Vitamin B Complex/Vit C/Folic Acid (Nephro-Manju) 1 tab PO 0800 [facility] Last Admin: 08/22/17 08:19 Dose: 1 tab - Labs Labs: 08/22/17 05:30 08/22/17 05:30 PT 12.9 SECONDS (9.4-12.5) H 08/18/17 23:00 INR 1.18 (0.93-1.08) H 08/18/17 23:00 APTT 33.6 Seconds (25.1-36.5) 08/18/17 23:00 Attending/Attestation - Attestation I have personally seen and examined this patient.: Yes I have fully participated in the care of the patient.: Yes I have reviewed all pertinent clinical information, including history, physical exam and plan: Yes Notes (Text): 08/22/17 21:27 47 year old female with past medical history of ESRD on HD, diabetes, and hypertension who presented with altered mental status likely multifactorial due to hypertensive emergency, pneumonia and hyperosmolar hyperglycemic state. CT head and MRI brain were reviewed. Neurology and psychiatry evaluation were appreciated. Her mental status has improved to baseline. She is being followed by endocrinology for diabetes. She is on levemir, januvia and prandin. She is on hydralazine, norvasc and lisinopril for hypertension. Continue with iv antibiotics as per ID for pneumonia. Continue with HD for ESRD as per nephrology. PT evaluation was appreciated. Likely d/c planning home in 1-2 days if symptoms continue to improve. Janes Contreras MD Hospitalist.
[2017-08-22] MEDS ORDERED: Insulin Detemir 100 units/ml Vial (Levemir) SC SCH (22:00)
[2017-08-23] MEDS: Insulin Reg-LOW-Coverage SC SCH ×3 (00:26→11:34)
[2017-08-23] MEDS ORDERED: Pantoprazole 40 mg EC Tab PO SCH (06:00)
[2017-08-23 06:07] VITALS: O2SAT 98
[2017-08-23] MEDS: Multivitamin Vitamin B Complex (Nephro-Vite) Tab PO SCH (09:25)
[2017-08-23] MEDS: Cefepime 1gm in NS 100ml 1 GM/100 ML BAG IVPB SCH (10:09)
[2017-08-23 12:57] VITALS: BP 164/94; PULSE 88; RESP 16; TEMP 98
--- NOTE | 2017-08-23 13:52 | CP.PCM.PN ---
Subjective - Date & Time of Evaluation Date of Evaluation: 08/23/17 Time of Evaluation: 13:51 - Subjective Subjective: Follow up Nephrology Consultation: Assessment: Stable Altered mental status, Hyperosmolar non-ketotic hyperglycemic state, HTN emergency, lactic acidosis, Sepsis, Hypokalemia Diabetic chronic Kidney Disease (E11.22) Hypertensive Chronic Kidney Disease (I12.0) End stage renal disease (N18.6) dependence on hemodialysis (Z99.2) (TTS) via AVG Anemia (D64.9), Hyperphosphatemia (E83.39), Secondary Hyperparathyroidism (E21.1 ), HTN (I12.0) Plan: Will plan for HD saturday as next session. no acute need today Continue with Nephrovite 1 tab/day. Hb okay, defer HAILEY for now last phos level 4.0 okay BP control with meds as ordered. Patient on RAAS lópez as lisinopril at home, resumed Glycemic control (metformin contraindicated due to ESRD status), Dialysis consistent diet Further work up/management as per primary team Dose meds/antibiotics (if needed) for ESRD status. Avoid fleets enema/magnesium based laxatives. Thanks for allowing me to participate in care of your patient. Will follow patient with you. Please call if any Qs. d/w team Dr Elton Bryant Office: [phone] Chief Complaint; none now HPI: Pt is a 47 y/o with hx of ESRD on hemodialysis (TTS) via Rt AVG, last dialysis sat, chronic anemia, hyperphosphatemia, secondary hyperparathyroidism, Diabetes Mellitus, hypertension presented with complaints of fever and confusion , change in mental status, found to have sepsis, hyperosmolar state, HTN emergency and admission to ICU as required insulin drip and IV antihypertensives. Feels better now. Denies chest pain, palpitation, shortness of breath, leg swelling. resolved cough and sore throat recent admission to [facility] for pneumonia and d/c home approx 7-10 days ago. Physical Examination: General Appearance: Comfortable, in no acute respiratory distress, co-operative . Vitals reviewed and noted as below Head; Atraumatic, normocephalic ENT: no ulcers no thrush. Tongue is midline. Oropharynx: no rash EYES: Pupils are equal, round and reactive to light accommodation. Eye muscles and extraocular movement intact. Sclera is anicteric. Neck; supple no lymphadenopathy, no thyromegaly or bruit Lungs: Normal respiratory rate/effort. Breath sounds bilateral equal and b/l clear Heart: Normal rate. s1s2 normal. No rub or gallop. Extremities: no edema. No varicose veins Neurological: Patient is alert, awake and oriented to person, place and time. No focal deficit. Strength bilateral appropriate and equal. Skin: Warm and dry. Normal turgor. No rash. Palpitation: Normal elasticity for age Abdomen: Abdomen is soft. Bowel sounds +. There is no abdominal tenderness, no guarding/rigidity or organomegaly Psych: normal insight and normal affect/mood MSK: no joint tenderness or swelling. Digits and nails normal, no deformity : kidney or bladder not palpable Access: Rt AVG with thrill and bruit Labs/imaging reviewed. Past medical history, past surgical history, family history, social history, allergy reviewed and noted as below Family Hx: no hx of CKD. Non contributory Objective - Vital Signs/Intake and Output Vital Signs (last 24 hours): Temp Pulse Resp BP Pulse Ox 98.0 F 88 16 164/94 H 98 08/23/17 12:00 08/23/17 12:00 08/23/17 12:00 08/23/17 12:00 08/23/17 06:00 Intake and Output: 08/23/17 08/23/17 06:59 18:59 Intake Total 420 Balance 420 - Medications Medications: Current Medications Amlodipine Besylate (Norvasc) 5 mg PO DAILY [facility] Last Admin: 08/23/17 09:25 Dose: 5 mg Heparin Sodium (Porcine) (Heparin) 5,000 units SC Q12 [facility] PRN Reason: Protocol Last Admin: 08/23/17 09:26 Dose: 5,000 units Hydralazine HCl (Apresoline) 25 mg PO Q8H [facility] Last Admin: 08/23/17 09:30 Dose: 25 mg Cefepime HCl (Maxipime 1gm) 1 gm in 100 mls @ 100 mls/hr IVPB Q12 [facility] PRN Reason: Protocol Last Admin: 08/23/17 10:09 Dose: 100 mls/hr Insulin Detemir (Levemir) 16 unit SC HS [facility] Last Admin: 08/22/17 22:00 Dose: 16 unit Insulin Human Regular (Humulin R Low) 0 units SC ACHS [facility] PRN Reason: Protocol Last Admin: 08/23/17 11:34 Dose: Not Given Lisinopril (Zestril) 40 mg PO DAILY [facility] Last Admin: 08/23/17 09:25 Dose: 40 mg Ondansetron HCl (Zofran Inj) 4 mg IVP Q6H PRN PRN Reason: Nausea/Vomiting Last Admin: 08/20/17 18:35 Dose: 4 mg Pantoprazole Sodium (Protonix Ec Tab) 40 mg PO 0600 [facility] Last Admin: 08/23/17 06:33 Dose: 40 mg Repaglinide (Prandin) 2 mg PO AC [facility] Last Admin: 08/23/17 12:20 Dose: 2 mg Sitagliptin Phosphate (Januvia) 25 mg PO DAILY [facility] Last Admin: 08/23/17 09:26 Dose: 25 mg Vitamin B Complex/Vit C/Folic Acid (Nephro-Mnaju) 1 tab PO 0800 [facility] Last Admin: 08/23/17 09:25 Dose: 1 tab - Labs Labs: 08/22/17 05:30 08/22/17 05:30 PT 12.9 SECONDS (9.4-12.5) H 08/18/17 23:00 INR 1.18 (0.93-1.08) H 08/18/17 23:00 APTT 33.6 Seconds (25.1-36.5) 08/18/17 23:00
--- NOTE | 2017-08-23 14:41 | CP.PCM.DIS ---
<Carlos Pro - Last Filed: 08/23/17 15:11> Provider - Provider Date of Admission: 08/19/17 00:45 Attending physician: Janes Contreras MD Primary care physician: Lianet Barriga MD Consults: Dr. Garrett Wong Time Spent in preparation of Discharge (in minutes): 35 Hospital Course - Lab Results Lab Results: Micro Results 08/19/17 03:15 Naris MRSA Culture (Admit) - Final MRSA NOT DETECTED Most Recent Lab Values WBC 5.0 10^3/ul (4.5-11.0) 08/22/17 05:30 RBC 3.89 10^6/uL (3.5-6.1) 08/22/17 05:30 Hgb 11.9 g/dL (12.0-16.0) L 08/22/17 05:30 Hct 37.8 % (36.0-48.0) 08/22/17 05:30 MCV 97.2 fl (80.0-105.0) 08/22/17 05:30 MCH 30.6 pg (25.0-35.0) 08/22/17 05:30 MCHC 31.5 g/dl (31.0-37.0) 08/22/17 05:30 RDW 16.6 % (11.5-14.5) H 08/22/17 05:30 Plt Count 139 10^3/uL (120.0-450.0) 08/22/17 05:30 MPV 11.6 fl (7.0-11.0) H 08/22/17 05:30 Gran % 55.5 % (50.0-68.0) 08/22/17 05:30 Lymph % (Auto) 29.0 % (22.0-35.0) 08/22/17 05:30 Vernon % (Auto) 12.3 % (1.0-6.0) H 08/22/17 05:30 Eos % (Auto) 2.6 % (1.5-5.0) 08/22/17 05:30 Baso % (Auto) 0.6 % (0.0-3.0) 08/22/17 05:30 Gran # 2.79 (1.4-6.5) 08/22/17 05:30 Lymph # 1.5 (1.2-3.4) 08/22/17 05:30 Vernon # 0.6 (0.1-0.6) 08/22/17 05:30 Eos # 0.1 (0.0-0.7) 08/22/17 05:30 Baso # 0.03 K/mm3 (0.0-2.0) 08/22/17 05:30 PT 12.9 SECONDS (9.4-12.5) H 08/18/17 23:00 INR 1.18 (0.93-1.08) H 08/18/17 23:00 APTT 33.6 Seconds (25.1-36.5) 08/18/17 23:00 pO2 33 mm/Hg (30-55) 08/19/17 09:00 VBG pH 7.38 (7.32-7.43) 08/19/17 09:00 VBG pCO2 52.0 (40-60) 08/19/17 09:00 VBG HCO3 30.8 mmol/l (21-28) H 08/19/17 09:00 VBG Total CO2 32.4 mmol.L (22-28) H 08/19/17 09:00 VBG O2 Sat (Calc) 65.6 % (40-65) H 08/19/17 09:00 VBG Base Excess 4.4 mmol/L (0.0-2.0) H 08/19/17 09:00 VBG Potassium 3.5 mmol/L (3.6-5.2) L 08/19/17 09:00 Sodium 143.0 mmol/L (132-148) 08/19/17 09:00 Chloride 103.0 mmol/L (98-107) 08/19/17 09:00 Glucose 61 mg/dl (65-105) L 08/19/17 09:00 Lactate 3.0 mmol/L (0.7-2.1) H 08/19/17 09:00 FiO2 21.0 % 08/19/17 09:00 Sodium 135 mmol/L (132-148) 08/22/17 05:30 Potassium 4.3 mmol/L (3.6-5.0) 08/22/17 05:30 Chloride 98 mmol/L (98-107) 08/22/17 05:30 Carbon Dioxide 28 mmol/L (21-33) 08/22/17 05:30 Anion Gap 14 (10-20) 08/22/17 05:30 BUN 26 mg/dL (7-21) H 08/22/17 05:30 Creatinine 4.6 mg/dl (0.7-1.2) H 08/22/17 05:30 Est GFR ( Amer) 12 08/22/17 05:30 Est GFR (Non-Af Amer) 10 08/22/17 05:30 POC Glucose (mg/dL) 138 mg/dL (65-110) H 08/23/17 11:29 Random Glucose 229 mg/dL (70-110) H 08/22/17 05:30 Calcium 8.7 mg/dL (8.4-10.5) 08/22/17 05:30 Phosphorus 4.0 mg/dL (2.5-4.5) 08/22/17 05:30 Magnesium 2.0 mg/dL (1.7-2.2) 08/22/17 05:30 Total Bilirubin 0.6 mg/dL (0.2-1.3) 08/22/17 05:30 Direct Bilirubin 0.9 mg/dL (0.0-0.4) H 08/19/17 09:00 AST 48 U/L (14-36) H D 08/22/17 05:30 ALT 94 U/L (7-56) H 08/22/17 05:30 Alkaline Phosphatase 95 U/L (38-126) 08/22/17 05:30 Ammonia < 9 umol/L (9-33) L 08/19/17 09:00 Total Protein 6.3 g/dL (5.8-8.3) 08/22/17 05:30 Albumin 3.1 g/dL (3.0-4.8) 08/22/17 05:30 Globulin 3.1 gm/dL 08/22/17 05:30 Albumin/Globulin Ratio 1.0 (1.1-1.8) L 08/22/17 05:30 TSH 3rd Generation 1.19 mIU/mL (0.46-4.68) 08/19/17 05:00 Venous Blood Potassium 3.5 mmol/L (3.6-5.2) L 08/19/17 09:00 Urine Color Yellow (YELLOW) 08/18/17 22:00 Urine Appearance Clear (CLEAR) 08/18/17 22:00 Urine pH 8.0 (4.7-8.0) 08/18/17 22:00 Ur Specific [place] 1.020 (1.005-1.035) 08/18/17 22:00 Urine Protein >=300 mg/dL (<30 mg/dL) H 08/18/17 22:00 Urine Glucose (UA) >=1000 mg/dL (NEGATIVE) 08/18/17 22:00 Urine Ketones Negative mg/dL (NEGATIVE) 08/18/17 22:00 Urine Blood Moderate (NEGATIVE) H 08/18/17 22:00 Urine Nitrate Negative (NEGATIVE) 08/18/17 22:00 Urine Bilirubin Negative (NEGATIVE) 08/18/17 22:00 Urine Urobilinogen 0.2 E.U./dL (<1 E.U./dL) 08/18/17 22:00 Ur Leukocyte Esterase Negative Rusty/uL (NEGATIVE) 08/18/17 22:00 Urine RBC 5 - 10 /hpf (0-2) 08/18/17 22:00 Urine WBC 1 - 3 /hpf (0-6) 08/18/17 22:00 Ur Epithelial Cells 3 - 4 /hpf (0-5) 08/18/17 22:00 Vancomycin Trough 8.1 ug/mL (5.0-10.0) 08/20/17 21:20 Salicylates < 1 mg/dL (2.0-20.0) L 08/19/17 09:00 Urine Opiates Screen Negative (NEGATIVE) 08/19/17 22:00 Urine Methadone Screen Negative (NEGATIVE) 08/19/17 22:00 Acetaminophen < 10.0 ug/ml (10.0-20.0) L 08/19/17 09:00 Ur Barbiturates Screen No result (NEGATIVE) 08/19/17 22:00 Ur Phencyclidine Scrn Negative (NEGATIVE) 08/19/17 22:00 Ur Amphetamines Screen Negative (NEGATIVE) 08/19/17 22:00 U Benzodiazepines Scrn Negative (NEGATIVE) 08/19/17 22:00 U Oth Cocaine Metabols Negative (NEGATIVE) 08/19/17 22:00 U Cannabinoids Screen Negative (NEGATIVE) 08/19/17 22:00 Alcohol, Quantitative < 10 mg/dL (0-10) 08/19/17 05:00 Hepatitis A IgM Ab Negative (NEGATIVE) 08/19/17 09:00 Hep Bs Antigen Negative (NEGATIVE) 08/19/17 09:00 Hep B Core IgM Ab Negative (NEGATIVE) 08/19/17 09:00 Hepatitis C Antibody Negative (NEGATIVE) 08/19/17 09:00 HIV 1&2 Ag/Ab, 4th Gen Nonreactive (Nonreactive) 08/19/17 09:00 - Hospital Course Hospital Course: 47 year old female with a past medical history of ESRD, uncontrolled DM, hypertension, hyperlipidemia, non-compliance, and recent pneumonia who [place] [facility]tered [place] Status. She was treated for nosocomial pneumonia, HHS, and a hypertensive emergency under the supervision of the ICU. She was dialyzed on Saturday and Saturday. She was medically stabilized with an insulin drip, IV antihypertensives, IV antibiotics and hemodialysis. Her altered mental status resolved and was transferred to telemetry and closely monitored and discharged with the below written medications and instructions. The patient's two daughters were well addressed during the course of their mother's hospital stay. - Date & Time of H&P Date of H&P: 08/23/17 Time of H&P: 15:01 Discharge Exam - Head Exam Head Exam: ATRAUMATIC, NORMOCEPHALIC - Eye Exam Eye Exam: EOMI, Normal appearance, PERRL Pupil Exam: NORMAL ACCOMODATION - ENT Exam ENT Exam: Mucous Membranes Moist, Normal Oropharynx - Neck Exam Neck exam: Normal Inspection - Respiratory Exam Respiratory Exam: Clear to PA & Lateral, NORMAL BREATHING PATTERN - Cardiovascular Exam Cardiovascular Exam: RRR, +S1, +S2 - GI/Abdominal Exam GI & Abdominal Exam: Diminished Bowel Sounds, Normal Bowel Sounds - Extremities Exam Extremities exam: normal inspection - Back Exam Back exam: NORMAL INSPECTION. absent: CVA tenderness (L), CVA tenderness (R) - Neurological Exam Neurological exam: Alert, CN II-XII Intact, Oriented x3 - Psychiatric Exam Psychiatric exam: Normal Affect, Normal Mood - Skin Skin Exam: Dry, Intact, Normal Color, Warm Discharge Plan - Discharge Medications Prescriptions: amLODIPine [Norvasc] 10 mg PO DAILY #30 tab Cephalexin [Keflex] 500 mg PO BID #14 capsule hydrALAZINE [Apresoline] 25 mg PO Q8H #90 tab Lisinopril [Zestril] 40 mg PO DAILY #30 tab Repaglinide [Prandin] 2 mg PO AC #30 tab SITagliptin [Januvia] 25 mg PO DAILY #30 tab Vitamin B Complex/Vit C/Folic [Nephro-Manju] 1 tab PO 0800 #30 tab - Follow Up Plan Condition: GUARDED Disposition: HOME/ ROUTINE Instructions: Viral Pneumonia (DC), Renal Failure Diet (DC), Bacterial Pneumonia (DC), Altered Mental Status (GEN), Diabetic Hyperglycemia (DC) Additional Instructions: 1) Patient to follow up with PMD within one week. 2) Patient to take any medications as prescribed, unless otherwise indicated. 3) Patient to return to the ED for any worsening symptoms. 4) Patient to take Cephalexin 500 mg BID for 7 days. Referrals: Lianet Barriga MD [Primary Care Provider] - <Janes Contreras - Last Filed: 08/23/17 15:55> Provider - Provider Date of Admission: 08/19/17 00:45 Attending physician: Janes Contreras MD Primary care physician: Lianet Barriga MD Hospital Course - Lab Results Lab Results: Micro Results 08/19/17 03:15 Naris MRSA Culture (Admit) - Final MRSA NOT DETECTED Most Recent Lab Values WBC 5.0 10^3/ul (4.5-11.0) 08/22/17 05:30 RBC 3.89 10^6/uL (3.5-6.1) 08/22/17 05:30 Hgb 11.9 g/dL (12.0-16.0) L 08/22/17 05:30 Hct 37.8 % (36.0-48.0) 08/22/17 05:30 MCV 97.2 fl (80.0-105.0) 08/22/17 05:30 MCH 30.6 pg (25.0-35.0) 08/22/17 05:30 MCHC 31.5 g/dl (31.0-37.0) 08/22/17 05:30 RDW 16.6 % (11.5-14.5) H 08/22/17 05:30 Plt Count 139 10^3/uL (120.0-450.0) 08/22/17 05:30 MPV 11.6 fl (7.0-11.0) H 08/22/17 05:30 Gran % 55.5 % (50.0-68.0) 08/22/17 05:30 Lymph % (Auto) 29.0 % (22.0-35.0) 08/22/17 05:30 Vernon % (Auto) 12.3 % (1.0-6.0) H 08/22/17 05:30 Eos % (Auto) 2.6 % (1.5-5.0) 08/22/17 05:30 Baso % (Auto) 0.6 % (0.0-3.0) 08/22/17 05:30 Gran # 2.79 (1.4-6.5) 08/22/17 05:30 Lymph # 1.5 (1.2-3.4) 08/22/17 05:30 Vernon # 0.6 (0.1-0.6) 08/22/17 05:30 Eos # 0.1 (0.0-0.7) 08/22/17 05:30 Baso # 0.03 K/mm3 (0.0-2.0) 08/22/17 05:30 PT 12.9 SECONDS (9.4-12.5) H 08/18/17 23:00 INR 1.18 (0.93-1.08) H 08/18/17 23:00 APTT 33.6 Seconds (25.1-36.5) 08/18/17 23:00 pO2 33 mm/Hg (30-55) 08/19/17 09:00 VBG pH 7.38 (7.32-7.43) 08/19/17 09:00 VBG pCO2 52.0 (40-60) 08/19/17 09:00 VBG HCO3 30.8 mmol/l (21-28) H 08/19/17 09:00 VBG Total CO2 32.4 mmol.L (22-28) H 08/19/17 09:00 VBG O2 Sat (Calc) 65.6 % (40-65) H 08/19/17 09:00 VBG Base Excess 4.4 mmol/L (0.0-2.0) H 08/19/17 09:00 VBG Potassium 3.5 mmol/L (3.6-5.2) L 08/19/17 09:00 Sodium 143.0 mmol/L (132-148) 08/19/17 09:00 Chloride 103.0 mmol/L (98-107) 08/19/17 09:00 Glucose 61 mg/dl (65-105) L 08/19/17 09:00 Lactate 3.0 mmol/L (0.7-2.1) H 08/19/17 09:00 FiO2 21.0 % 08/19/17 09:00 Sodium 135 mmol/L (132-148) 08/22/17 05:30 Potassium 4.3 mmol/L (3.6-5.0) 08/22/17 05:30 Chloride 98 mmol/L (98-107) 08/22/17 05:30 Carbon Dioxide 28 mmol/L (21-33) 08/22/17 05:30 Anion Gap 14 (10-20) 08/22/17 05:30 BUN 26 mg/dL (7-21) H 08/22/17 05:30 Creatinine 4.6 mg/dl (0.7-1.2) H 08/22/17 05:30 Est GFR ( Amer) 12 08/22/17 05:30 Est GFR (Non-Af Amer) 10 08/22/17 05:30 POC Glucose (mg/dL) 138 mg/dL (65-110) H 08/23/17 11:29 Random Glucose 229 mg/dL (70-110) H 08/22/17 05:30 Calcium 8.7 mg/dL (8.4-10.5) 08/22/17 05:30 Phosphorus 4.0 mg/dL (2.5-4.5) 08/22/17 05:30 Magnesium 2.0 mg/dL (1.7-2.2) 08/22/17 05:30 Total Bilirubin 0.6 mg/dL (0.2-1.3) 08/22/17 05:30 Direct Bilirubin 0.9 mg/dL (0.0-0.4) H 08/19/17 09:00 AST 48 U/L (14-36) H D 08/22/17 05:30 ALT 94 U/L (7-56) H 08/22/17 05:30 Alkaline Phosphatase 95 U/L (38-126) 08/22/17 05:30 Ammonia < 9 umol/L (9-33) L 08/19/17 09:00 Total Protein 6.3 g/dL (5.8-8.3) 08/22/17 05:30 Albumin 3.1 g/dL (3.0-4.8) 08/22/17 05:30 Globulin 3.1 gm/dL 08/22/17 05:30 Albumin/Globulin Ratio 1.0 (1.1-1.8) L 08/22/17 05:30 TSH 3rd Generation 1.19 mIU/mL (0.46-4.68) 08/19/17 05:00 Venous Blood Potassium 3.5 mmol/L (3.6-5.2) L 08/19/17 09:00 Urine Color Yellow (YELLOW) 08/18/17 22:00 Urine Appearance Clear (CLEAR) 08/18/17 22:00 Urine pH 8.0 (4.7-8.0) 08/18/17 22:00 Ur Specific [place] 1.020 (1.005-1.035) 08/18/17 22:00 Urine Protein >=300 mg/dL (<30 mg/dL) H 08/18/17 22:00 Urine Glucose (UA) >=1000 mg/dL (NEGATIVE) 08/18/17 22:00 Urine Ketones Negative mg/dL (NEGATIVE) 08/18/17 22:00 Urine Blood Moderate (NEGATIVE) H 08/18/17 22:00 Urine Nitrate Negative (NEGATIVE) 08/18/17 22:00 Urine Bilirubin Negative (NEGATIVE) 08/18/17 22:00 Urine Urobilinogen 0.2 E.U./dL (<1 E.U./dL) 08/18/17 22:00 Ur Leukocyte Esterase Negative Rusty/uL (NEGATIVE) 08/18/17 22:00 Urine RBC 5 - 10 /hpf (0-2) 08/18/17 22:00 Urine WBC 1 - 3 /hpf (0-6) 08/18/17 22:00 Ur Epithelial Cells 3 - 4 /hpf (0-5) 08/18/17 22:00 Vancomycin Trough 8.1 ug/mL (5.0-10.0) 08/20/17 21:20 Salicylates < 1 mg/dL (2.0-20.0) L 08/19/17 09:00 Urine Opiates Screen Negative (NEGATIVE) 08/19/17 22:00 Urine Methadone Screen Negative (NEGATIVE) 08/19/17 22:00 Acetaminophen < 10.0 ug/ml (10.0-20.0) L 08/19/17 09:00 Ur Barbiturates Screen No result (NEGATIVE) 08/19/17 22:00 Ur Phencyclidine Scrn Negative (NEGATIVE) 08/19/17 22:00 Ur Amphetamines Screen Negative (NEGATIVE) 08/19/17 22:00 U Benzodiazepines Scrn Negative (NEGATIVE) 08/19/17 22:00 U Oth Cocaine Metabols Negative (NEGATIVE) 08/19/17 22:00 U Cannabinoids Screen Negative (NEGATIVE) 08/19/17 22:00 Alcohol, Quantitative < 10 mg/dL (0-10) 08/19/17 05:00 Hepatitis A IgM Ab Negative (NEGATIVE) 08/19/17 09:00 Hep Bs Antigen Negative (NEGATIVE) 08/19/17 09:00 Hep B Core IgM Ab Negative (NEGATIVE) 08/19/17 09:00 Hepatitis C Antibody Negative (NEGATIVE) 08/19/17 09:00 HIV 1&2 Ag/Ab, 4th Gen Nonreactive (Nonreactive) 08/19/17 09:00 Attending/Attestation - Attestation I have personally seen and examined this patient.: Yes I have fully participated in the care of the patient.: Yes I have reviewed all pertinent clinical information, including history, physical exam and plan: Yes Notes (Text): 08/23/17 15:50 47 year old female with past medical history of ESRD on HD, diabetes, and hypertension who presented with altered mental status likely multifactorial due to hypertensive emergency, pneumonia and hyperosmolar hyperglycemic state. Her mental status has improved to baseline. She was seen by endocrinology for diabetes management. Her blood pressure medications were adjusted as well. She was counselled on medication compliance. She was on iv antibiotics for pneumonia and on HD for ESRD. Overall her symptoms improved over a course of few days in the hospital. She is discharged home to follow up with her pmd. Hospital course and plan of care was discussed with her daughters. Janes Contreras MD Hospitalist.
--- NOTE | 2017-08-23 16:10 | PN ---
DATE: ENDO FOLLOWUP NOTE SUBJECTIVE: This is a 47-year-old female with recent uncontrolled type 2 insulin-requiring diabetes with persistent glycemic fluctuations related to the diabetes with oral intake with suboptimal meal portions and is now being followed closely for metabolic management. Her glycemic levels today have ranged from 72 to 218 mg/dL. It has been 307 last night. LABORATORY DATA: Her latest chemistry showed a BUN of 26, sodium 135, potassium 4.3, chloride 98, CO2 28, glucose 229, and creatinine is 4.6. ASSESSMENT AND PLAN: At this time, we will modify once again her basal insulin and lower the Levemir to 12 units at bedtime daily at 9. We will continue to do all oral hyperglycemic drug therapy given as Prandin 2 mg p.o. t.i.d. and Januvia given as 25 mg once daily in the morning of . We will titrate incrementally as indicated to optimize metabolic control. We will obtain serum chemistry . Sachi Magana MD
--- NOTE | 2017-08-23 16:13 | CP.PCM.PN ---
Subjective - Date & Time of Evaluation Date of Evaluation: 08/23/17 Time of Evaluation: 14:00 - Subjective Subjective: Infectious Disease Follow Up: August 23, 2017 47 yo female with extensive past medical history that includes IDDM type 2, ESRD on HD (T/R/S), HTN, osteomyelitis, HLD who was brought to the ER by EMS, called by her boyfriend for altered mental status and lethargy. Patient was lethargic, further history obtained by ICU team from her daughter who was at bedside. Patient had reportedly recently (about 1 week ago) been admitted to [facility] where she was being treated for pneumonia, and was ultimately discharged with a PO course of antibiotics. According to the daughter, patient was not taking anything for the pneumonia after leaving the hospital, and continued to have a cough productive of green sputum, as well as fever and malaise. She was also not taking any of her other medications for the past 2-3 days, as she has been staying at her friend's home where she doesn't have access to them. Daughter does think she went to dialysis as scheduled on Saturday, but cannot confirm with certainty. Further ROS and HPI limited by patient's mental status. Patient states that she did go to HD on Saturday. The patient had hyperglycemia and hypertensive urgency on admission here. She is more awake and alert now. Patient still complains of garbled speech. Otherwise communicates fairly well. Spoke with patient's daughter. Blood pressure remains elevated but improved. Objective - Vital Signs/Intake and Output Vital Signs (last 24 hours): Temp Pulse Resp BP Pulse Ox 98.0 F 88 16 164/94 H 98 08/23/17 12:00 08/23/17 12:00 08/23/17 12:00 08/23/17 12:00 08/23/17 06:00 Intake and Output: 08/23/17 08/23/17 06:59 18:59 Intake Total 420 Balance 420 - Labs Labs: 08/22/17 05:30 08/22/17 05:30 PT 12.9 SECONDS (9.4-12.5) H 08/18/17 23:00 INR 1.18 (0.93-1.08) H 08/18/17 23:00 APTT 33.6 Seconds (25.1-36.5) 11/19/17 23:00 - Constitutional Appears: Non-toxic, No Acute Distress, Chronically Ill - Head Exam Head Exam: ATRAUMATIC, NORMOCEPHALIC - Eye Exam Eye Exam: EOMI, PERRL Pupil Exam: NORMAL ACCOMODATION, PERRL - ENT Exam ENT Exam: Mucous Membranes Moist, Normal External Ear Exam, TM's Normal Bilaterally - Neck Exam Neck Exam: Full ROM, Normal Inspection - Respiratory Exam Respiratory Exam: Clear to Ausculation Bilateral, NORMAL BREATHING PATTERN. absent: Rales, Rhonchi, Wheezes - Cardiovascular Exam Cardiovascular Exam: REGULAR RHYTHM, RRR, +S1, +S2 - GI/Abdominal Exam GI & Abdominal Exam: Soft, Normal Bowel Sounds. absent: Distended, Tenderness - Extremities Exam Extremities Exam: Full ROM, Normal Inspection - Neurological Exam Neurological Exam: Alert, Awake, CN II-XII Intact, Oriented x3 - Psychiatric Exam Psychiatric exam: Normal Affect, Normal Mood - Skin Skin Exam: Intact, Normal Color Assessment and Plan - Assessment and Plan (Free Text) Assessment: 47 yo female with AMS on presentation to [facility]. Recently at [facility]. The patient Chest X-ray with evidence of CHF. MRI of brain done. The patient with no leukocytosis. Fevers up to 104 F. On Meropenem IV for now. Awaiting cultures. Will check records at [facility]. On HD for her ESRD. Supportive care. Cultures negative to date. Deescalated meropenem to cefepime. Vancomycin dosing based on levels. On Cefepime for antibiotic coverage now. No fevers today. Appears to be clinically improving. Thank you for allowing me to participate in the care of the patient, we will follow with you.
== END 2017-08-23 15:15 | disposition home or self-care (01) | DRG 584 ==
LOC: ED 21:29 → ERH 08-19 00:45 → CCU 08-19 02:54 → 2RSO 08-19 20:22
PROVIDERS: ADMIT Internal Medicine; ATTEND Internal Medicine
PROC: 5A1D70Z Performance of Urinary Filtration, Intermittent, Less than 6 Hours Per Day (ICD-10-PCS; principal; 2017-08-21)
DX: A41.9 Sepsis, unspecified organism (principal); J18.9 Pneumonia, unspecified organism; E11.00 Type 2 diabetes mellitus with hyperosmolarity without nonketotic hyperglycemic-hyperosmolar coma (NKHHC); N18.6 End stage renal disease; I13.2 Hypertensive heart and chronic kidney disease with heart failure and with stage 5 chronic kidney disease, or end stage renal disease; E11.22 Type 2 diabetes mellitus with diabetic chronic kidney disease; E87.2 Acidosis; F05 Delirium due to known physiological condition; I50.9 Heart failure, unspecified; E87.6 Hypokalemia; I16.1 Hypertensive emergency; N25.81 Secondary hyperparathyroidism of renal origin; D64.9 Anemia, unspecified; E83.39 Other disorders of phosphorus metabolism; Y95 Nosocomial condition; E78.5 Hyperlipidemia, unspecified; Z99.2 Dependence on renal dialysis; Z79.84 Long term (current) use of oral hypoglycemic drugs